=== PATIENT | female | born 1970 | race Caucasian/White ===

== ENCOUNTER 2017-01-22 21:57 | Emergency (ER) | payer MEDICARE, MEDICAID ==
[~2017-01-22] VITALS: Ht 167.6 cm; Wt 181.8 kg
[~2017-01-22 21:57] MED LIST: ADVI200C5 PO; ALBU17IN INH; CELE10TA PO; CELE20TA PO; CIPR-249 PO; CYCL10TA PO; DRIS50002 PO; GABA-282 PO; K-TA10TA2 PO; LEVO100T5 PO; LEVO25TA5 PO; LEVO50TA5 PO; METF500T13 PO; PERCOCET PO; TOPA50TA8 PO; TRAZ50TA11 PO; VITMTA PO; ZANA2CAP PO
[2017-01-22 21:58] VITALS: BP 152/86
[2017-01-23] MEDS ORDERED: PERC5TAB12 PO (23:59)
== END 2017-01-22 23:27 | disposition left against medical advice (07) ==
LOC: M ED 21:57
DX: R11.0 Nausea (principal); Z53.29 Procedure and treatment not carried out because of patient's decision for other reasons

== ENCOUNTER 2017-01-23 21:16 | Emergency (ER) | payer MEDICARE, MEDICAID ==
[~2017-01-23] VITALS: Ht 170.2 cm; Wt 184.1 kg
[2017-01-23 21:51] VITALS: BP 135/75
[2017-01-23] MEDS ORDERED: KETOROLAC 60 MG/2 ML VIAL (J1885) IM ONE (22:00)
[2017-01-23] MEDS ORDERED: PERC5TAB12 PO (23:59)
[2017-01-24] MEDS ORDERED: OXYCODONE/APAP 5MG/325MG(BULK FOR ED) 1 TABLET PO ONE
== END 2017-01-24 00:32 | disposition home or self-care (01) ==
LOC: EDBD 21:16 → M ED 21:16
DX: M54.16 Radiculopathy, lumbar region (principal); M54.17 Radiculopathy, lumbosacral region; E11.9 Type 2 diabetes mellitus without complications; G89.29 Other chronic pain; M54.9 Dorsalgia, unspecified; J45.909 Unspecified asthma, uncomplicated; E06.9 Thyroiditis, unspecified; F32.9 Major depressive disorder, single episode, unspecified; F17.200 Nicotine dependence, unspecified, uncomplicated; E66.01 Morbid (severe) obesity due to excess calories; M51.9 Unspecified thoracic, thoracolumbar and lumbosacral intervertebral disc disorder; Z79.899 Other long term (current) drug therapy; Z88.1 Allergy status to other antibiotic agents; Z88.8 Allergy status to other drugs, medicaments and biological substances
CPT/HCPCS: 96372; 99283; J1885; J3360

== ENCOUNTER 2017-03-11 17:14 | Emergency (ER) | payer MEDICARE, MEDICAID ==
[~2017-03-11] VITALS: Ht 167.6 cm; Wt 181.8 kg
[~2017-03-11 17:14] MED LIST changes: +PERC5TAB12 PO
[2017-03-11] MEDS ORDERED: PERCOCET 5MG/325MG TAB PO ONE (17:30)
[2017-03-11] MEDS ORDERED: [UNRECOGNIZED DRUG - OTHER] XX (18:45)
[2017-03-11 19:03] VITALS: BP 137/74
--- NOTE | 2017-03-12 07:18 | REP ---
RIGHT KNEE SERIES: Five views of the right knee are performed. There is no evidence of acute fracture or dislocation. There is moderate diffuse joint space narrowing and subchondral sclerosis and spurring. Probable joint effusion is noted. IMPRESSION: Degenerative changes. No fracture. Joint effusion. Signed by Torin Cornejo MD 03/12/2017 05:27 P
== END 2017-03-11 19:26 | disposition home or self-care (01) ==
LOC: M ED 17:14 → EDBD 17:14 → M ED 19:26
DX: M25.561 Pain in right knee (principal); J44.9 Chronic obstructive pulmonary disease, unspecified; M79.9 Soft tissue disorder, unspecified; F32.9 Major depressive disorder, single episode, unspecified; F17.200 Nicotine dependence, unspecified, uncomplicated; Z79.899 Other long term (current) drug therapy; Z88.1 Allergy status to other antibiotic agents; Z88.8 Allergy status to other drugs, medicaments and biological substances

== ENCOUNTER → 2017-10-03 | Outpatient (REF) | payer MEDICARE, MEDICAID ==
[2017-10-03 20:08] LABS: ESTIMATED AVERAGE GLUCOSE 266 MG/DL (60-110); HEMOGLOBIN A1c 10.9 %
[2017-10-03 20:14] LABS: ALBUMIN 3.5 GM/DL (3.2-5.2); ALBUMIN/GLOBULIN RATIO 0.92 (1.00-1.93); ALKALINE PHOSPHATASE 160 U/L (45-117); ALT/SGPT 97 U/L (12-78); ANION GAP 4 MEQ/L (8-16); AST/SGOT 47 U/L (7-37); BILIRUBIN,TOTAL 0.3 MG/DL (0.2-1.0); BLOOD UREA NITROGEN 14 MG/DL (7-18); CALCIUM LEVEL 9.2 MG/DL (8.5-10.1); CARBON DIOXIDE LEVEL 33 MEQ/L (21-32); CHLORIDE LEVEL 103 MEQ/L (98-107); CREATININE FOR GFR 0.99 MG/DL (0.55-1.30); GLOMERULAR FILTRATION RATE > 60.0 (>58); GLUCOSE, FASTING 263 MG/DL (70-100); POTASSIUM SERUM 4.9 MEQ/L (3.5-5.1); SODIUM LEVEL 140 MEQ/L (136-145); TOTAL PROTEIN 7.3 GM/DL (6.4-8.2)
== END ==
LOC: M LAB REF 17:31
DX: E03.9 Hypothyroidism, unspecified (principal); E11.9 Type 2 diabetes mellitus without complications
CPT/HCPCS: 84443

== ENCOUNTER 2017-10-08 22:19 | Emergency (ER) | payer MEDICARE, MEDICAID ==
[2017-10-08] MEDS: methylPREDNISolone INJ 125 MG/2 ML VIAL (J2930) IM ×2 (23:09)
[2017-10-08] MEDS: diphenhydrAMINE INJ 50MG/ML VIAL (J1200) IM ×2 (23:09)
== END 2017-10-09 00:20 | disposition home or self-care (01) ==
LOC: M ED 10-09 00:20
DX: R21 Rash and other nonspecific skin eruption (principal); E66.01 Morbid (severe) obesity due to excess calories; E11.9 Type 2 diabetes mellitus without complications; J45.909 Unspecified asthma, uncomplicated; E03.9 Hypothyroidism, unspecified; F33.9 Major depressive disorder, recurrent, unspecified; F41.9 Anxiety disorder, unspecified; F17.200 Nicotine dependence, unspecified, uncomplicated; Z88.8 Allergy status to other drugs, medicaments and biological substances; Z79.890 Hormone replacement therapy; Z79.899 Other long term (current) drug therapy
CPT/HCPCS: J1200

== ENCOUNTER → 2017-11-19 | Outpatient (REF) | payer MEDICARE, MEDICAID ==
[2017-11-19 19:33] LABS: ESTIMATED AVERAGE GLUCOSE 252 MG/DL (60-110); HEMOGLOBIN A1c 10.4 %
== END ==
LOC: M LAB REF 17:48
DX: E03.9 Hypothyroidism, unspecified (principal); Z79.899 Other long term (current) drug therapy
CPT/HCPCS: 84443

== ENCOUNTER → 2018-01-08 | Outpatient (REF) | payer MEDICARE, MEDICAID | LOC: M LAB REF 18:48 | DX: E03.9 Hypothyroidism, unspecified (principal) | CPT/HCPCS: 84443 ==

== ENCOUNTER → 2018-04-16 | Outpatient (REF) | payer MEDICARE ==
[2018-04-16 14:27] LABS: BASO % 0.5 % (0.0-1.0); EOS # 0.1 10^3/uL (0.0-0.50); EOS % 2.4 % (0.0-3.0); HEMATOCRIT 50.2 % (36.0-47.0); IMMATURE GRANULOCYTE % 0.5 % (0-3.0); LYMPH # 0.9 10^3/uL (1.5-4.5); LYMPH % 16.1 % (24.0-44.0); MEAN CORPUSCULAR HEMOGLOBIN 34.8 pg (27.0-33.0); MEAN CORPUSCULAR HGB CONC 31.9 g/dl (32.0-36.5); MEAN CORPUSCULAR VOLUME 109.1 fl (80.0-96.0); MONO # 0.3 10^3/uL (0.0-0.8); MONO % 4.7 % (0.0-5.0); NEUTROPHILS # 4.4 10^3/uL (1.8-7.7); NEUTROPHILS % 75.8 % (36.0-66.0); PLATELET COUNT, AUTOMATED 238 10^3/uL (150-450); WHITE BLOOD COUNT 5.8 10^3/uL (4.0-10.0)
[2018-04-16 14:59] LABS: ALBUMIN 3.4 GM/DL (3.2-5.2); ALBUMIN/GLOBULIN RATIO 0.97 (1.00-1.93); ALKALINE PHOSPHATASE 154 U/L (45-117); ALT/SGPT 102 U/L (12-78); ANION GAP 6 MEQ/L (8-16); AST/SGOT 61 U/L (7-37); BILIRUBIN,TOTAL 0.3 MG/DL (0.2-1.0); BLOOD UREA NITROGEN 16 MG/DL (7-18); CALCIUM LEVEL 9.1 MG/DL (8.5-10.1); CARBON DIOXIDE LEVEL 30 MEQ/L (21-32); CHLORIDE LEVEL 104 MEQ/L (98-107); CREATININE FOR GFR 0.97 MG/DL (0.55-1.30); GLOMERULAR FILTRATION RATE > 60.0 (>58); GLUCOSE, FASTING 163 MG/DL (70-100); POTASSIUM SERUM 4.8 MEQ/L (3.5-5.1); RHEUMATOID FACTOR QUANT < 10.0 IU/ML (<15.0); SODIUM LEVEL 140 MEQ/L (136-145); TOTAL PROTEIN 6.9 GM/DL (6.4-8.2)
[2018-04-16 15:00] LABS: FOLATE 11.1 NG/ML
[2018-04-16 15:10] LABS: ERYTHROCYTE SEDIMENTATION RATE 3 mm/hr (0-20)
[2018-04-16 15:19] LABS: ESTIMATED AVERAGE GLUCOSE 154 MG/DL (60-110)
[2018-04-17 11:11] LABS: DRVV SCREEN 35.1 SEC
[2018-04-17 11:17] LABS: PTT LUPUS TYPE ANTICOAG SCREEN 0.8 (0-1.2)
[2018-04-18 11:04] LABS: ALBUMIN 3.67 GM/DL (3.29-5.55); ALBUMIN % 53.2 % (55.8-66.1); ALPHA-1-GLOBULIN % 4.5 % (2.9-4.9); ALPHA-1-GLOBULINS 0.31 GM/DL (0.17-0.41); ALPHA-2-GLOBULINS 0.82 GM/DL (0.42-0.99); ALPHA-2-GLOBULINS % 11.9 % (7.1-11.8); BETA-1-GLOBULINS % 7.3 % (4.7-7.2); BETA-2-GLOBULINS % 7.2 % (3.2-6.5); GAMMA GLOBULIN % 15.9 % (11.1-18.8)
[2018-04-22 00:07] LABS: ANCA-ATYPICAL <1:20 titer (Neg:<1:20); ANTI DOUBLE STRAND-DNA AB 1 IU/mL (0-9); ANTINUCLEAR ANTIBODIES DIRECT Negative (Negative); CYTOPLASMIC NEUTROP AB ANCA-C <1:20 titer (Neg:<1:20); PERINUCLEAR AB ANCA-P <1:20 titer (Neg:<1:20); SJOGREN'S ANTI SS-A <0.2 AI (0.0-0.9); SJOGREN'S ANTI SS-B <0.2 AI (0.0-0.9); VITAMIN B1 LEVEL WHOLE BLOOD 129.5 nmol/L (66.5-200.0); VITAMIN B6,PYRIDOXAL PHOSPHATE 2.1 ug/L (2.0-32.8); VITAMIN E(ALPHA TOCOPHEROL) 10.5 mg/L (7.0-25.1); VITAMIN E(GAMMA TOCOPHEROL) 5.3 mg/L (0.5-5.5)
== END ==
LOC: M LABNEURO 10:42
DX: G62.9 Polyneuropathy, unspecified (principal); E03.9 Hypothyroidism, unspecified; E11.9 Type 2 diabetes mellitus without complications
CPT/HCPCS: 82746

== ENCOUNTER 2018-04-20 00:05 | Emergency (ER) | payer MEDICARE ==
[2018-04-20] MEDS: NORCO, ANEXSIA 5/325MG TABLET (HYDROcodone/ACETAMINOPHEN) PO (01:01)
[2018-04-20] MEDS: NORCO 5/325MG TABLET (BULK FOR ED) PO (02:23)
== END 2018-04-20 02:33 | disposition home or self-care (01) ==
LOC: M ED 00:05
DX: K08.89 Other specified disorders of teeth and supporting structures (principal); E11.9 Type 2 diabetes mellitus without complications; J44.9 Chronic obstructive pulmonary disease, unspecified; J45.909 Unspecified asthma, uncomplicated; M79.7 Fibromyalgia; F43.10 Post-traumatic stress disorder, unspecified; E03.9 Hypothyroidism, unspecified; D64.9 Anemia, unspecified; Z79.899 Other long term (current) drug therapy; Z79.890 Hormone replacement therapy; Z79.4 Long term (current) use of insulin; Z88.8 Allergy status to other drugs, medicaments and biological substances; F17.210 Nicotine dependence, cigarettes, uncomplicated
CPT/HCPCS: 70486

== ENCOUNTER → 2018-05-24 | Outpatient (CLI) | payer MEDICARE | LOC: M PLARAD 10:10 | DX: M47.892 Other spondylosis, cervical region (principal); M48.02 Spinal stenosis, cervical region; M50.21 Other cervical disc displacement, high cervical region; M50.221 Other cervical disc displacement at C4-C5 level; M50.23 Other cervical disc displacement, cervicothoracic region | CPT/HCPCS: 72141 ==

== ENCOUNTER 2018-06-15 04:14 | Emergency (ER) | payer MEDICARE ==
[~2018-06-15] VITALS: Ht 170.2 cm; Wt 190.9 kg
[~2018-06-15 04:14] MED LIST changes: +AMMO12CR4; -DRIS50002 PO; +DRIS50003 PO; -GABA-282 PO; +GABA-843 PO; +GLIM2TAB PO; +GLIP5TAB20; +INSUH10VL SC; +LANTINJ4; +LEVO112T2; +LIDVISCBTL SSP; +NORCOTAB PO; +NOVOINJ2; +TRAD5TAB; +TRAZ-160 PO; -TRAZ50TA11 PO; +TRUL0.5I; +[UNRECOGNIZED DRUG - OTHER] XX
[2018-06-15] MEDS ORDERED: KETOROLAC 30 MG/ML VIAL (J1885) IV ONE (05:00)
[2018-06-15] MEDS ORDERED: ONDANSETRON 4MG/2ML VIAL (J2405) IV ONE (05:00)
[2018-06-15] MEDS ORDERED: NS 1,000 ML IV ONE (05:00)
[2018-06-15 05:22] LABS: BASO % 0.4 % (0.0-1.0); EOS # 0.1 10^3/uL (0.0-0.50); EOS % 2.1 % (0.0-3.0); HEMATOCRIT 49.1 % (36.0-47.0); HEMOGLOBIN 16.3 g/dl (12.0-15.5); LYMPH # 1.3 10^3/uL (1.5-4.5); MEAN CORPUSCULAR HEMOGLOBIN 34.3 pg (27.0-33.0); MEAN CORPUSCULAR HGB CONC 33.2 g/dl (32.0-36.5); MEAN CORPUSCULAR VOLUME 103.4 fl (80.0-96.0); MONO # 0.3 10^3/uL (0.0-0.8); MONO % 4.6 % (0.0-5.0); NEUTROPHILS # 4.9 10^3/uL (1.8-7.7); NEUTROPHILS % 73.5 % (36.0-66.0); PLATELET COUNT, AUTOMATED 230 10^3/uL (150-450); RED BLOOD COUNT 4.75 10^6/uL (4.00-5.40); WHITE BLOOD COUNT 6.7 10^3/uL (4.0-10.0)
[2018-06-15 05:39] LABS: ALBUMIN 3.2 GM/DL (3.2-5.2); ALT/SGPT 95 U/L (12-78); BILIRUBIN,DIRECT < 0.1 MG/DL (0.0-0.2); BILIRUBIN,TOTAL 0.3 MG/DL (0.2-1.0); BLOOD UREA NITROGEN 19 MG/DL (7-18); CALCIUM LEVEL 8.9 MG/DL (8.5-10.1); CARBON DIOXIDE LEVEL 29 MEQ/L (21-32); CHLORIDE LEVEL 101 MEQ/L (98-107); CREATININE FOR GFR 1.18 MG/DL (0.55-1.30); GLOMERULAR FILTRATION RATE 51.8 (>58); GLUCOSE, FASTING 216 MG/DL (70-100); LIPASE 191 U/L (73-393); POTASSIUM SERUM 4.2 MEQ/L (3.5-5.1); SODIUM LEVEL 138 MEQ/L (136-145)
--- NOTE | 2018-06-15 08:29 | REPVR ---
EXAM: CT Abdomen and Pelvis Without Contrast EXAM DATE/TIME: 06/15/2018 5:43 AM CLINICAL HISTORY: 48 years old, female; Pain; Abdominal pain; Flank; Right; Additional info: Right flank pain, hematuria TECHNIQUE: Axial computed tomography images of the abdomen and pelvis without contrast. All CT scans at this facility use at least one of these dose optimization techniques: automated exposure control; mA and/or kV adjustment per patient size (includes targeted exams where dose is matched to clinical indication); or iterative reconstruction. Coronal and sagittal reformatted images were created and reviewed. COMPARISON: CT ABD PELVIS WITH CONTRAST 07/30/2015 5:26 AM FINDINGS: Limitations: Evaluation is somewhat limited by lack of IV contrast. There is also streak artifact along the right aspect related to body habitus with the body wall along the scanner. Lower thorax: The visualized lung bases demonstrate minor dependent atelectasis. ABDOMEN: Liver: The liver is again enlarged and fatty in density. It appears otherwise grossly unremarkable. Gallbladder and bile ducts: No gallstones are evident, but ultrasound would be more sensitive. No gross biliary ductal dilatation. Pancreas: Grossly unremarkable. Spleen: Grossly unremarkable. Adrenals: Grossly unremarkable. Kidneys and ureters: Grossly unremarkable. No hydronephrosis or renal or ureteral calculus. Stomach and bowel: The unopacified small bowel is not significantly distended to suggest obstruction. There is again mild sigmoid colonic diverticulosis without evidence for diverticulitis. The large bowel is otherwise grossly unremarkable in appearance. Appendix: The appendix appears normal. PELVIS: Bladder: Unremarkable as visualized. Reproductive: Unremarkable as visualized. ABDOMEN and PELVIS: Intraperitoneal space: Normal. No free air. No significant fluid collection. Bones/joints: Degenerative changes again involve the spine and hips. There are again remote fractures or congenital defects of the right L1-L4 transverse processes. Soft tissues: Unremarkable. Vasculature: Normal. No abdominal aortic aneurysm. Lymph nodes: There are some mildly increasing and large maura hepatis lymph nodes measuring up to 1.8 cm short axis (previously 1.3 cm). IMPRESSION: 1. No hydronephrosis or renal or ureteral calculus. 2. Mildly enlarging maura hepatis lymphadenopathy as compared with 07/30/15, nonspecific. Correlate clinically and follow. 3. Persistent large, fatty liver. 4. Persistent mild sigmoid colonic diverticulosis without evidence for diverticulitis. 5. Depending on suspected etiology of symptoms, consider a targeted ultrasound or contrast enhanced exam. Electronically signed by: Emmanuel Talavera On 06/15/2018 08:28:32 AM
--- NOTE | 2018-06-15 10:19 | REP ---
Clinical: Abdominal pain. Technique: Real time sigala scale ultrasound examination using curved array transducer. Findings: Liver is diffusely increased echogenicity with poor through transmission suggesting fatty infiltration. No focal hepatic lesion identified. The pancreas is incompletely evaluated due to interposed bowel gas but visualized portions appear normal. The gallbladder is unremarkable and without gallstones, wall thickening, or pericholecystic fluid. No biliary ductal dilatation is appreciated and the common bile duct measures 3.4 mm diameter. The right kidney is normal in reniform shape without hydronephrosis and measures 12.6 x 5.8 x 5.4 cm. No ascites in the visualized right upper quadrant. Impression: Hepatic steatosis. Electronically Signed by Wero Kathleen MD 06/15/2018 10:11 A
[2018-06-15] MEDS ORDERED: LIDO5DIS41 TOP (10:29)
[2018-06-15] MEDS ORDERED: CYCL5TAB PO (10:29)
[2018-06-15 10:43] VITALS: BP 115/55
[2018-06-17 12:28] LABS: HEPATITIS A ANTIBODY IGM NEGATIVE (NEGATIVE); HEPATITIS B CORE ANTIBODY IGM NEGATIVE (NEGATIVE); HEPATITIS B SURFACE ANTIGEN NEGATIVE (NEGATIVE); HEPATITIS C VIRUS ABY INDEX 0.1 INDEX (<0.8)
== END 2018-06-15 10:52 | disposition home or self-care (01) ==
LOC: M ED 04:14
DX: M54.9 Dorsalgia, unspecified (principal); R10.9 Unspecified abdominal pain; K76.89 Other specified diseases of liver; K57.90 Diverticulosis of intestine, part unspecified, without perforation or abscess without bleeding; I25.10 Atherosclerotic heart disease of native coronary artery without angina pectoris; E11.9 Type 2 diabetes mellitus without complications; G89.29 Other chronic pain; M54.5 Low back pain; Z72.0 Tobacco use; Z12.10 Encounter for screening for malignant neoplasm of intestinal tract, unspecified; Z79.4 Long term (current) use of insulin; Z79.899 Other long term (current) drug therapy; Z88.1 Allergy status to other antibiotic agents; Z88.8 Allergy status to other drugs, medicaments and biological substances
CPT/HCPCS: 74176; 76705; 80048; 80076; 81001; 83690; 85025; 86705; 86709; 86803; 87340; 96361; 96374; 96375; 99284; J1885; J2405

== ENCOUNTER → 2018-09-10 | Outpatient (REF) | payer MEDICARE ==
[~2018-09-10] MED LIST changes: +CYCL5TAB PO; +LIDO5DIS41 TOP
[2018-09-10 18:10] LABS: BASO % 0.5 % (0.0-1.0); EOS # 0.2 10^3/uL (0.0-0.50); EOS % 2.3 % (0.0-3.0); HEMATOCRIT 47.5 % (36.0-47.0); HEMOGLOBIN 15.5 g/dl (12.0-15.5); LYMPH # 1.3 10^3/uL (1.5-4.5); LYMPH % 16.6 % (24.0-44.0); MEAN CORPUSCULAR HEMOGLOBIN 33.5 pg (27.0-33.0); MEAN CORPUSCULAR HGB CONC 32.6 g/dl (32.0-36.5); MEAN CORPUSCULAR VOLUME 102.8 fl (80.0-96.0); MONO # 0.3 10^3/uL (0.0-0.8); MONO % 3.6 % (0.0-5.0); NEUTROPHILS # 5.8 10^3/uL (1.8-7.7); NEUTROPHILS % 76.5 % (36.0-66.0); PLATELET COUNT, AUTOMATED 275 10^3/uL (150-450); RED BLOOD COUNT 4.62 10^6/uL (4.00-5.40); WHITE BLOOD COUNT 7.5 10^3/uL (4.0-10.0)
[2018-09-10 18:47] LABS: ALBUMIN 3.3 GM/DL (3.2-5.2); ALT/SGPT 115 U/L (12-78); BILIRUBIN,TOTAL 0.4 MG/DL (0.2-1.0); BLOOD UREA NITROGEN 13 MG/DL (7-18); CALCIUM LEVEL 9.1 MG/DL (8.5-10.1); CARBON DIOXIDE LEVEL 29 MEQ/L (21-32); CHLORIDE LEVEL 99 MEQ/L (98-107); CHOLESTEROL LEVEL 244 MG/DL (<200); CHOLESTEROL RISK RATIO 8.714 (<5); CREATININE FOR GFR 0.86 MG/DL (0.55-1.30); FERRITIN 288 NG/ML (8-252); FOLATE 6.1 NG/ML; GLOMERULAR FILTRATION RATE > 60.0 (>58); GLUCOSE, FASTING 234 MG/DL (70-100); HDL CHOLESTEROL 28 MG/DL (>40); IRON (FE) 133 UG/DL (50-170); NON-HDL-C 216 MG/DL; POTASSIUM SERUM 4.6 MEQ/L (3.5-5.1); SODIUM LEVEL 135 MEQ/L (136-145); TOTAL 25(OH) VITAMIN D 17.3 NG/ML (30.0-100.0); TRIGLYCERIDES LEVEL 433 MG/DL (<150); VITAMIN B12 LEVEL 469 PG/ML
== END ==
LOC: M LAB REF 16:42
PROVIDERS: ATTEND Nurse Practitioner Family
DX: Z13.9 Encounter for screening, unspecified (principal); E78.5 Hyperlipidemia, unspecified; E11.9 Type 2 diabetes mellitus without complications

== ENCOUNTER → 2018-09-13 | Outpatient (CLI) | payer MEDICARE, MEDICAID ==
[~2018-09-13] MED LIST changes: -AMMO12CR4; +AMMO12CR7; +HYDR-3715 PO; +KEFL500C17 PO; +NEUR300C PO; -NORCOTAB PO
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
== END ==
LOC: M PAIN 09:30
PROVIDERS: ATTEND Anesthesiology
DX: M79.18 Myalgia, other site (principal); M50.10 Cervical disc disorder with radiculopathy, unspecified cervical region; J45.909 Unspecified asthma, uncomplicated; J44.9 Chronic obstructive pulmonary disease, unspecified; E03.9 Hypothyroidism, unspecified; E11.9 Type 2 diabetes mellitus without complications; D64.9 Anemia, unspecified; E66.9 Obesity, unspecified; F43.10 Post-traumatic stress disorder, unspecified; F32.9 Major depressive disorder, single episode, unspecified; F17.200 Nicotine dependence, unspecified, uncomplicated; H54.8 Legal blindness, as defined in USA; M19.90 Unspecified osteoarthritis, unspecified site; F40.01 Agoraphobia with panic disorder; F40.240 Claustrophobia; Z68.44 Body mass index [BMI] 60.0-69.9, adult; Z79.84 Long term (current) use of oral hypoglycemic drugs; Z79.899 Other long term (current) drug therapy; Z88.8 Allergy status to other drugs, medicaments and biological substances

== ENCOUNTER 2018-09-24 21:44 | Emergency (ER) | payer MEDICARE, MEDICAID ==
[~2018-09-24] VITALS: Ht 170.2 cm; Wt 188.2 kg
[~2018-09-24 21:44] MED LIST changes: -KEFL500C17 PO; -NEUR300C PO
[2018-09-24] MEDS ORDERED: NEUR300C PO (21:49)
[2018-09-25 01:47] LABS: BASO % 0.5 % (0.0-1.0); EOS # 0.1 10^3/uL (0.0-0.50); EOS % 2.2 % (0.0-3.0); HEMATOCRIT 44.5 % (36.0-47.0); HEMOGLOBIN 14.6 g/dl (12.0-15.5); LYMPH # 1.1 10^3/uL (1.5-4.5); LYMPH % 19.3 % (24.0-44.0); MEAN CORPUSCULAR HGB CONC 32.8 g/dl (32.0-36.5); MEAN CORPUSCULAR VOLUME 103.5 fl (80.0-96.0); MONO # 0.3 10^3/uL (0.0-0.8); MONO % 4.5 % (0.0-5.0); NEUTROPHILS # 4.1 10^3/uL (1.8-7.7); NEUTROPHILS % 73.1 % (36.0-66.0); PLATELET COUNT, AUTOMATED 200 10^3/uL (150-450); WHITE BLOOD COUNT 5.6 10^3/uL (4.0-10.0)
[2018-09-25 02:00] LABS: PROTHROMBIN TIME 13.3 SECONDS (12.1-14.4)
[2018-09-25 02:01] LABS: PARTIAL THROMBOPLASTIN TIME 25.4 SECONDS (25.4-37.6)
[2018-09-25 02:28] LABS: ALBUMIN 3.2 GM/DL (3.2-5.2); ALT/SGPT 143 U/L (12-78); BILIRUBIN,DIRECT 0.1 MG/DL (0.0-0.2); BILIRUBIN,TOTAL 0.4 MG/DL (0.2-1.0); BLOOD UREA NITROGEN 14 MG/DL (7-18); CALCIUM LEVEL 8.8 MG/DL (8.5-10.1); CARBON DIOXIDE LEVEL 25 MEQ/L (21-32); CHLORIDE LEVEL 103 MEQ/L (98-107); FREE T4 1.02 NG/DL (0.76-1.46); GLOMERULAR FILTRATION RATE > 60.0 (>58); GLUCOSE, FASTING 219 MG/DL (70-100); MAGNESIUM LEVEL 1.9 MG/DL (1.8-2.4); PHOSPHORUS LEVEL 3.4 MG/DL (2.5-4.9); POTASSIUM SERUM 4.4 MEQ/L (3.5-5.1); SODIUM LEVEL 136 MEQ/L (136-145)
[2018-09-25 02:46] LABS: CPK CREATINE PHOSPHOKINASE 93 U/L (26-192); TROPONIN I < 0.02 NG/ML (< 0.10)
[2018-09-25 02:47] LABS: MB/CK RELATIVE INDEX 1.61 (< OR =4)
--- NOTE | 2018-09-25 03:27 | REPVR ---
EXAM: US Duplex Bilateral Lower Extremity Veins EXAM DATE/TIME: 09/25/2018 2:09 AM CLINICAL HISTORY: 48 years old, female; Signs and symptoms; Edema, localized; Lower extremity, bilateral; Additional info: Swelling R/O dvt TECHNIQUE: Imaging protocol: Real-time duplex ultrasound of the Bilateral Lower Extremities with 2-D sigala scale, color Doppler flow and spectral waveform analysis. Complete exam focused on the bilateral lower extremity veins. COMPARISON: US Duplex, right lower extremity veins 11/30/2014 9:12 PM FINDINGS: Right deep veins: Unremarkable. The common femoral, femoral, and popliteal veins are patent without thrombus. Normal compressibility, augmentation response and Doppler waveforms. Right superficial veins: Saphenofemoral junction is patent without thrombus. Left deep veins: Unremarkable. The common femoral, femoral, and popliteal veins are patent without thrombus. Normal compressibility, augmentation response and Doppler waveforms. Left superficial veins: Saphenofemoral junction is patent without thrombus. Soft tissues: Unremarkable. IMPRESSION: No deep vein thrombosis in the veins visualized in both lower extremities. Electronically signed by: Silviano Matta On 09/25/2018 03:27:46 AM
[2018-09-25 04:14] VITALS: BP 110/82
[2018-09-25] MEDS ORDERED: KEFL500C17 PO (04:36)
[2018-09-25] MEDS ORDERED: CEPHALEXIN 500 MG CAP PO ONE (04:45)
--- NOTE | 2018-09-25 05:40 | REP ---
Clinical: Shortness of breath. Technique: AP and cross-table lateral. Findings: Mediastinum and cardiac silhouette are normal. Subtle right basilar opacity cannot be excluded. No effusion. No pneumothorax. Skeletal structures intact. Impression: Cannot exclude subtle right basilar opacity. Electronically Signed by Wero Kathleen MD 09/25/2018 05:32 A
--- NOTE | 2018-09-25 06:44 | ED PDOC ---
Post-Departure Follow-Up [facility] faxed cxr for fu nikolayg Rosalia Stevens MD Sep 25, 2018 06:44
--- NOTE | 2018-09-25 08:33 | ECGEPIP ---
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
== END 2018-09-25 04:53 | disposition home or self-care (01) ==
LOC: M ED 21:44
DX: L03.115 Cellulitis of right lower limb (principal); L03.116 Cellulitis of left lower limb; E11.9 Type 2 diabetes mellitus without complications; I10 Essential (primary) hypertension; J45.909 Unspecified asthma, uncomplicated; J44.9 Chronic obstructive pulmonary disease, unspecified; M79.7 Fibromyalgia; D64.9 Anemia, unspecified; F43.10 Post-traumatic stress disorder, unspecified; Z79.4 Long term (current) use of insulin; Z79.899 Other long term (current) drug therapy; Z88.4 Allergy status to anesthetic agent; Z88.1 Allergy status to other antibiotic agents; Z88.8 Allergy status to other drugs, medicaments and biological substances

== ENCOUNTER → 2018-10-15 | Outpatient (CLI) | payer MEDICARE, MEDICAID ==
[~2018-10-15] MED LIST changes: +BUPIVACAINE HCL 0.25% 10 ML VIAL As Ordered ONE; +BUPIVACAINE HCL 0.25% 30 ML VIAL As Ordered ONE; +KEFL500C17 PO; +NEUR300C PO; +TRIAMCINOLONE ACETONIDE SUSP 40 MG/ML VIAL (J3301) As Ordered ONE; +diazePAM 5 MG TAB As Ordered ONE; +oxyCODONE 5MG TAB As Ordered ONE
--- NOTE | 2018-10-28 00:20 | ECWPNPC ---
PATIENT NAME: RUKHSANA JUÁREZ : 1970 GENDER: FEMALE VISIT DATE: 10/15/2018 DISCHARGE DATE: 10/15/18 1339 VISIT LOCKED DATE TIME: PHYSICIAN: NAYLA MORRELL MD RESOURCE: NAYLA MORRELL MD REASON FOR APPOINTMENT 1. TPI HISTORY OF PRESENT ILLNESS HISTORY OF PRESENT ILLNESS: PAIN THE PATIENT DESCRIBES THE PAIN... FALL RISK SCREENING: SCREENING :NO FALLS REPORTED IN THE LAST YEAR CURRENT MEDICATIONS TAKING GLIPIZIDE 5 MG TABLET 1 TABLET ORALLY ONCE A DAY, NOTES: 10/14/18 TAKING LEVOTHYROXINE SODIUM 112 MCG TABLET 1 TABLET ON AN EMPTY STOMACH IN THE MORNING ORALLY ONCE A DAY, NOTES: 10/15/18 TAKING CYCLOBENZAPRINE HCL 10 MG TABLET 1 TABLET NEEDED ORALLY THREE TIMES A DAY, NOTES: 10/13/18 TAKING GABAPENTIN 300 MG CAPSULE 1 CAPSULE ORALLY BID, NOTES: 10/13/18 TAKING IBUPROFEN 200 MG TABLET 4 TABS ORALLY FOUR TIMES DAILY NEEDED, NOTES: 10/14/18 TAKING TRAZODONE HCL 100 MG TABLET 1 TABLET AT BEDTIME ORALLY ONCE A DAY, NOTES: 10/14/18 TAKING NYQUIL COLD & FLU 8 MG 1 CAP FULL ORALLY BEFORE BEDTIME, NOTES: 10/14/18 TAKING LIDOCAINE & ADHESIVE SHEET 5 % KIT DIRECTED EXTERNALLY , NOTES: 10/14/18 NOT-TAKING TRADJENTA 5 MG TABLET 1 TABLET ORALLY ONCE A DAY NOT-TAKING TRULICITY 1.5 MG/0.5ML SOLUTION PEN-INJECTOR DIRECTED SUBCUTANEOUS MEDICATION LIST REVIEWED AND RECONCILED WITH THE PATIENT PAST MEDICAL HISTORY ASTHMA COPD HYPOTHYROIDISM DIABETES IDDM ANEMIA OBESEITY BACK PAIN ARTHRITIS PTSD DEPRESSION ANXIETY / PANIC ATTACKS, AGORAPHOBIA, CLAUSTORPHOBIA LEGALLY BLIND ALLERGIES LYRICA: SEIZURES - ALLERGY WELLBUTRIN: SEIZURE - ALLERGY GLIMEPIRIDE: FACE SWELLING - ALLERGY SURGICAL HISTORY LEFT EYE RIGHT KNEE D&C 01/16 10/22/02 FAMILY HISTORY FATHER: 63 YRS, DIAGNOSED WITH DIABETES, CANCER MOTHER: 60 YRS, CANCER 1 BROTHER(S) , 3 SISTER(S) . 1 SON(S) , 2 DAUGHTER(S) . BROTHER - 2 [place] IN 2018, PTSD,ANXIETY\NOLDEST SISTER HAS CANCER\NMIDDLE SISTER -HYPERTHYROIDISM, GRAVES DIEASE\NYOUNGEST SISTER DM, BONE DIEASE\NBOTH DAUGHTERS HAVE CHRONIC MESOSYTERIC LYMPGHADNITUS\NYOUNGEST DAUGHTER HAS A FATTY LIVER\EDWIN THREE CHILDREN HAVE ANXIETY. SOCIAL HISTORY GENERAL: TOBACCO USE ARE YOU A:CURRENT SMOKER ARE YOU INTERESTED IN QUITTING?THINKING ABOUT QUITTING PREVIOUS QUIT ATTEMPTS?YES, MORE THAN 6 MONTHS AGO. COUNSELED THE PATIENT ON SMOKING CESSATION, EDUCATION [id number]/30/2019 OTHERS AT HOME: NONE. HOUSING: RENTS APARTMENT. EDUCATION LEVEL OF EDUCATION:NOT FINISHED COLLEGE DIET: NO CONCENTRATED SWEETS., CONSISTENT CARBOHYDRATE. LANGUAGE LANGUAGES SPOKEN:HEBREW RECREATIONAL DRUG USE DRUG USE?YES MARIJUANA, BROWNIES EXERCISE: NONE. LEARNING BARRIERS / SPECIAL NEEDS BARRIERS TO LEARNING?NO HEARING IMPAIRED?NO VISION IMPAIRED?YES :CORRECTIVE LENSES COGNITIVELY IMPAIRED?NO READINESS TO LEARN?NO LEARNING PREFERENCES?NO PAIN CLINIC PFS, CLERGY, PUBLIC HEALTH REFERRALS PFS REFERRAL NEEDED?NO CLERGY REFERRAL NEEDED?NO PUBLIC HEALTH REFERRAL NEEDED?NO WAS THE PROVIDER NOTIFIED OF ANY PERTINENT INFO?NO HAS THE PATIENT BEEN EDUCATED REGARDING HIS/HER PLAN OF CARE?YES HAS THE PATIENT BEEN EDUCATED REGARDING PAIN, THE RISK FOR PAIN, THE IMPORTANCE OF EFFECTIVE PAIN MANAGEMENT, AND THE PAIN ASSESSMENT PROCESS?YES LATEX QUESTIONNAIRE LATEX ALLERGY : HAVE YOU EVER DEVELOPED ANY TYPE OF REACTION AFTER HANDLING LATEX PRODUCTS SUCH RUBBER GLOVES, CONDOMS, DIAPHRAGMS, BALLOONS, SOCKS, OR UNDERWEAR?NO LATEX ALLERGY : HAVE YOU EVER DEVELOPED ANY TYPE OF REACTION DURING OR AFTER DENTAL APPOINTMENT, VAGINAL/RECTAL EXAMINATION, SURGICAL PROCEDURE, OR ANY OTHER EXPOSURE?NO LATEX RISK : HAVE YOU EVER HAD ANY DIFFICULTY BREATHING OR HIVES AFTER EATING OR HANDLING ANY FRUITS, OR VEGETABLES; SUCH KIWI, BANANAS, STONE FRUITS, OR CHESTNUTSNO LATEX RISK : DO YOU HAVE A PREVIOUS PERSONAL HISTORY OF MORE THAN NINE SURGERIES, SPINA BIFIDA, OR REPEATED CATHERTIZATIONS? NO LATEX RISK : ARE YOU FREQUENTLY EXPOSED TO LATEX PRODUCTS IN YOUR OCCUPATION?NO DATE ASKED : 09/13/2018 CAFFEINE CAFFEINE USE?YES 3 CUP PER COFFEE PER DAY ADVANCE DIRECTIVE ADVANCE DIRECTIVE DISCUSSED WITH PATIENT:YES PT. DECLINES INFORMATION RESTORATIONISM [id number] RESTORATIONISM WICCAN MARITAL STATUS: .. ALCOHOL SCREENING DID YOU HAVE A DRINK CONTAINING ALCOHOL IN THE PAST YEAR?YES HOW OFTEN DID YOU HAVE A DRINK CONTAINING ALCOHOL IN THE PAST YEAR?MONTHLY OR LESS (1 POINT) HOW MANY DRINKS DID YOU HAVE ON A TYPICAL DAY WHEN YOU WERE DRINKING IN THE PAST YEAR?3 OR 4 (1 POINT) HOW OFTEN DID YOU HAVE SIX OR MORE DRINKS ON ONE OCCASION IN THE PAST YEAR?LESS THAN MONTHLY (1 POINT) POINTS3 INTERPRETATIONPOSITIVE OCCUPATION: DISABLED. HOSPITALIZATION/MAJOR DIAGNOSTIC PROCEDURE PNEUMONIA 2009 ACCIDENTAL DRINKING PAINT THINNER 2015 SURGERY RELATED REVIEW OF SYSTEMS REVIEWED BY: PROVIDER: . CONSTITUTIONAL: ANY CHANGE IN YOUR MEDICAL CONDITION? NO . CHILLS NO . FEVER NO . INFECTION: DO YOU HAVE NEW INFECTIONS? NO . DO YOU HAVE HISTORY OF MRSA? NO . MUSCULOSKELETAL: ANY NEW PATTERNS OF PAIN OR NUMBNESS? NO . GASTROENTEROLOGY: ANY NEW CHANGE IN BOWEL CONTROL? NO . GENITOURINARY: ANY NEW CHANGE IN BLADDER CONTROL? NO . IS THERE A CHANCE YOU COULD BE ? NO . HEMATOLOGY/LYMPH: DO YOU TAKE ANY BLOOD THINNERS? (FOR EXAMPLE- COUMADIN, PLAVIX, AGGRENOX, PLATEL, PRADAXA, OR XARELTO) NO . WHEN WAS YOUR LAST DOSE? DATE: TIME: . NEUROLOGY: HAVE YOU FALLEN IN THE PAST 12 MONTHS? YES, LAST WEEK FELL ON SLIPPERY SURFACE . ANY NEW EXTREMITY NUMBNESS OR WEAKNESS? NO . CARDIOLOGY: DO YOU HAVE A PACEMAKER OR DEFIBRILLATOR? NO . RESPIRATORY: HAVE YOU BEEN SICK IN THE PAST WEEK? NO . FEVER NO . FLU LIKE SYMPTOMS? NO . COUGH NO . INTEGUMENTARY: DO YOU HAVE ANY RASHES OR OPEN SORES? NO . ALLERGIC/IMMUNO: ARE YOU ALLERGIC TO IV DYE? NO . ANY NEW ALLERGIES? NO . PSYCHIATRIC: DO YOU HAVE THOUGHTS OF HURTING YOURSELF OR SOMEONE ELSE? NO . ARE YOU ABUSED, NEGLECTED, OR IN AN UNSAFE ENVIRONMENT? NO . ENDOCRINOLOGY: ARE YOU DIABETIC? NO . OTHER: DO YOU NEED ANY PRESCRIPTIONS? NO . IF YES, PLEASE LIST: ____ . ANY NEW PROBLEMS WITH YOUR MEDICATIONS? NO . WHEN DID YOU LAST EAT? 10/14/180 . WHEN DID YOU LAST DRINK? 10/15/18 . WHAT DID YOU LAST DRINK? WATER . NAME OF PERSON DRIVING YOU HOME? YELLOW CAB . DO YOU HAVE ANY OTHER QUESTIONS OR CONCERNS NO . VITAL SIGNS WT 415 LBS, HT 67 IN, BMI 64.99 INDEX, BP 162/79 MM HG, HR 68 /MIN, RR 18 /MIN, TEMP 97.3 F, OXYGEN SAT % 95%, NA INITIALS SC 11:30, REVIEWED BY: EM. ASSESSMENTS MYALGIA, OTHER SITE - M79.18 (PRIMARY) PROCEDURES PN TRIGGER POINT INJECTION WITH STEROIDS PRE PROCEDURE DIAGNOSIS 1. MYALGIA 2. PAIN AT BILATERAL NECK AREA. POST PROCEDURE DIAGNOSIS 1. MYALGIA 2. PAIN AT BILATERAL NECK AREA. PROCEDURE TRIGGER POINT INJECTION AT BILATERAL NECK AREA. SURGEON DR. NAYLA MORRELL CONTINUITY TESTER NONE ANESTHESIA LOCAL PRE PROCEDURE NOTE THE PATIENT HAS A HISTORY OF CHRONIC PAIN AT THE RIGHT AND LEFT NECK AREA. I EVALUATED THE PATIENT AND REVIEWED THE CHART. THERE IS EVIDENCE OF BANDS OF TISSUE WITH RESTRICTION OF MOVEMENT AND PRESENCE OF TRIGGER POINT AT THE AFFECTED AREA. I WENT OVER THE RISKS, ALTERNATIVES, AND BENEFITS ASSOCIATED WITH THIS PROCEDURE. THE PATIENT WOULD LIKE TO PROCEED AND GIVE CONSENT TO PERFORMED THE PROCEDURE. THE PATIENT DENIES UNEXPLAINABLE WEIGHT LOSS, FEVER, CHILLS, OR NEW CHANGES IN URINARY OR BOWEL CONTROL DESCRIPTION OF PROCEDURE THE PATIENT WAS BROUGHT TO THE PROCEDURE ROOM AND PLACED IN THE SITTING POSITION. THE AREA WAS CLEANED WITH ALCOHOL. THE PROCEDURE WAS DONE USING ASEPTIC STERILE TECHNIQUE. I CHECKED LATERALITY AND THE LEVEL WHERE THE PROCEDURE WAS GOING TO BE PERFORMED WITH THE PATIENT AND THE SUPPORTING STAFF AT THE MOMENT OF THE TIME OUT IN THE PROCEDURE ROOM. USING A 25-GAUGE NEEDLE, TRIGGER POINTS WERE INJECTED AT THE RIGHT AND LEFT NECK AREA WITH A TOTAL OF 40 ML OF BUPIVACAINE 0.25% AND KENALOG 40 MG. THERE WAS NO EVIDENCE OF BLOOD, PARESTHESIA OR CEREBROSPINAL FLUID DURING THE PROCEDURE. THE PATIENT WAS SENT TO THE RECOVERY ROOM. THE PATIENT WAS MOVING THE EXTREMITIES AND DOING WELL. THERE WAS NO COMPLICATION DURING THE PROCEDURE POST PROCEDURE NOTE THE PATIENT WILL BE SEEN IN A FOLLOW UP IN THE NEXT FEW WEEKS. INSTRUCTIONS WERE GIVEN, QUESTIONS WERE ANSWERED, AND THE PATIENT EXPRESSED UNDERSTANDING AND AGREES WITH THE PLAN. I, CHINTAN PRADHAN, DOCUMENTED THE ABOVE INFORMATION ACTING A SCRIBE FOR DR. MORRELL. I HAVE REVIEWED THE ABOVE DOCUMENT, WRITTEN BY CHINTAN COOK AND I VERIFY THAT IT IS ACCURATE. PROCEDURE CODES 90122 INJ TRIGGER POINT / [facility] [place] DIS[place]ITION & COMMUNICATION FOLLOW UP 3 WEEKS ELECTRONICALLY SIGNED BY NAYLA MORRELL MD, MD ON 10/27/2018 AT 05:02 PM EDT DISCLAIMER : THIS IS A VISIT SUMMARY EXTRACTED FROM THE [employer] CHART. IT IS NOT A COPY OF THE [employer] PROGRESS NOTE. MTDD
== END ==
LOC: M PAIN 12:00
PROVIDERS: ATTEND Anesthesiology
DX: M79.18 Myalgia, other site (principal); M54.5 Low back pain; J44.9 Chronic obstructive pulmonary disease, unspecified; E03.9 Hypothyroidism, unspecified; E11.9 Type 2 diabetes mellitus without complications; M19.90 Unspecified osteoarthritis, unspecified site; Z72.0 Tobacco use; E66.01 Morbid (severe) obesity due to excess calories; Z68.44 Body mass index [BMI] 60.0-69.9, adult; Z79.899 Other long term (current) drug therapy; Z88.8 Allergy status to other drugs, medicaments and biological substances; Z86.59 Personal history of other mental and behavioral disorders
CPT/HCPCS: 20552; J3301

== ENCOUNTER 2019-02-13 10:44 | Emergency (ER) | payer MEDICARE, MEDICAID ==
[~2019-02-13] VITALS: Ht 170.2 cm; Wt 178.3 kg
[~2019-02-13 10:44] MED LIST changes: -BUPIVACAINE HCL 0.25% 10 ML VIAL As Ordered ONE; -BUPIVACAINE HCL 0.25% 30 ML VIAL As Ordered ONE; -TRAZ-160 PO; +TRAZ-252 PO; -TRIAMCINOLONE ACETONIDE SUSP 40 MG/ML VIAL (J3301) As Ordered ONE; -diazePAM 5 MG TAB As Ordered ONE; -oxyCODONE 5MG TAB As Ordered ONE
[2019-02-13] MEDS ORDERED: TRAZ-252 PO (11:17)
[2019-02-13] MEDS ORDERED: INSULANT SQ (11:17)
[2019-02-13] MEDS ORDERED: INSURSD (11:17)
[2019-02-13] MEDS ORDERED: CYCL10TA PO (11:17)
[2019-02-13] MEDS ORDERED: NS 1,000 ML IV ONE (12:30)
[2019-02-13] MEDS ORDERED: KETOROLAC 30 MG/ML VIAL (J1885) IV ONE (12:30)
[2019-02-13 12:49] LABS: BASO % 0.5 % (0.0-1.0); EOS # 0.1 10^3/uL (0.0-0.50); EOS % 1.4 % (0.0-3.0); HEMATOCRIT 43.9 % (36.0-47.0); HEMOGLOBIN 14.5 g/dl (12.0-15.5); LYMPH # 1.1 10^3/uL (1.5-4.5); MEAN CORPUSCULAR HEMOGLOBIN 33.6 pg (27.0-33.0); MEAN CORPUSCULAR VOLUME 101.9 fl (80.0-96.0); MONO # 0.3 10^3/uL (0.0-0.8); MONO % 4.9 % (0.0-5.0); NEUTROPHILS # 4.2 10^3/uL (1.8-7.7); NEUTROPHILS % 73.8 % (36.0-66.0); PLATELET COUNT, AUTOMATED 227 10^3/uL (150-450); RED BLOOD COUNT 4.31 10^6/uL (4.00-5.40); WHITE BLOOD COUNT 5.7 10^3/uL (4.0-10.0)
[2019-02-13] MEDS ORDERED: ISOVUE-370 76% 100ML VIAL (Q9967) As Ordered ONE (13:56)
[2019-02-13 14:02] LABS: ALBUMIN 2.9 GM/DL (3.2-5.2); ALT/SGPT 103 U/L (12-78); BILIRUBIN,DIRECT 0.2 MG/DL (0.0-0.2); BILIRUBIN,TOTAL 0.8 MG/DL (0.2-1.0); LIPASE 104 U/L (73-393)
--- NOTE | 2019-02-13 14:35 | REP ---
CT of the abdomen and pelvis with IV contrast, without bowel contrast for abdominal pain: Comparison is 07/30/2015. The visualized lung cope are unremarkable. The liver appears enlarged and heterogeneous. This may represent diffuse hepatocellular disease or hepatic steatosis. There are no hepatic masses. The gallbladder, pancreas, spleen, adrenals, kidneys, and abdominal aorta are unremarkable. There is no retroperitoneal adenopathy or mass. There is no bowel distension or obstruction. There are a few diverticula in the sigmoid colon. There is no CT evidence of diverticulitis. Pelvis: The terminal ileum and appendix are unremarkable. The bladder is unremarkable. The uterus and adnexa are unremarkable. There is no adenopathy or ascites. Impression: Hepatomegaly and inhomogeneous hepatic parenchyma. This is unchanged and compatible with diffuse hepatocellular disease/hepatic steatosis. There are no hepatic masses. There is no ascites. Otherwise, negative CT of the abdomen and pelvis. Electronically Signed by Torin Miller MD 02/13/2019 02:26 P
[2019-02-13 15:02] LABS: HEPATITIS B SURFACE ANTIGEN NEGATIVE (NEGATIVE)
[2019-02-13] MEDS ORDERED: KETO10TAB PO (15:17)
[2019-02-13 15:30] VITALS: BP 147/70
[2019-02-13] MEDS ORDERED: DICL50TAB PO (16:53)
[2019-02-14 10:56] LABS: HEPATITIS B CORE ANTIBODY IGM NEGATIVE (NEGATIVE)
[2019-02-14 10:59] LABS: HEPATITIS A ANTIBODY IGM NEGATIVE (NEGATIVE)
== END 2019-02-13 15:32 | disposition home or self-care (01) ==
LOC: M ED 10:44
DX: R10.9 Unspecified abdominal pain (principal); K76.0 Fatty (change of) liver, not elsewhere classified; I10 Essential (primary) hypertension; M54.9 Dorsalgia, unspecified; M79.7 Fibromyalgia; J44.9 Chronic obstructive pulmonary disease, unspecified; R16.0 Hepatomegaly, not elsewhere classified; F17.210 Nicotine dependence, cigarettes, uncomplicated; Z79.51 Long term (current) use of inhaled steroids; Z79.899 Other long term (current) drug therapy; Z88.1 Allergy status to other antibiotic agents; Z88.8 Allergy status to other drugs, medicaments and biological substances
CPT/HCPCS: 74177; 80047; 80076; 81001; 83690; 85025; 86705; 86709; 86803; 87340; 96361; 96374; 99284; J1885; Q9967

== ENCOUNTER → 2019-03-14 | Outpatient (CLI) | payer MEDICARE, MEDICAID ==
[~2019-03-14] MED LIST changes: +DICL50TAB PO; +INSULANT SQ; +INSURSD; +KETO10TAB PO
--- NOTE | 2019-03-22 01:21 | ECWPNPC ---
PATIENT NAME: RUKHSANA JUÁREZ : 1970 GENDER: FEMALE VISIT DATE: 03/14/2019 DISCHARGE DATE: 03/14/19 1441 VISIT LOCKED DATE TIME: PHYSICIAN: NAYLA MORRELL MD RESOURCE: NAYLA MORRELL MD REASON FOR APPOINTMENT 1. POST TPI HISTORY OF PRESENT ILLNESS HISTORY OF PRESENT ILLNESS: PAIN THE PATIENT DESCRIBES THE PAIN... 49 YEAR OLD FEMALE PATIENT WITH A HISTORY OF CHRONIC NECK AND LOW BACK PAIN. THE PATIENT DESCRIBES THE PAIN ACHING, BURNING, SORE, TENDER, SHARP, STABBING, SHOOTING, NUMBING, TINGLING, AND CONTINUOUS WITH A PAIN SCORE OF 5-8/10 DEPENDING ON PHYSICAL ACTIVITY. THE PATIENT STATES SHE HAS BEEN SUFFERING FROM THIS PAIN FOR A LONG TIME. THE PATIENT RECEIVED BILATERAL NECK TRIGGER POINT INJECTIONS ON 10/15/2018, WHICH SHE SAYS HELPED GIVE HER OVER 3 MONTHS OF GOOD PAIN RELIEF. THE PATIENT SAYS THE TRIGGER POINT INJECTION HELPED GIVE HER INCREASED FUNCTIONALITY AND MOBILITY DURING THOSE MONTHS. PATIENT DENIES UNEXPLAINABLE WEIGHT LOSS, FEVER, CHILLS, NEW CHANGES ON HER URINARY OR BOWEL CONTROL. FALL RISK SCREENING: SCREENING :NO FALLS REPORTED IN THE LAST YEAR CURRENT MEDICATIONS TAKING GLIPIZIDE 5 MG TABLET 1 TABLET ORALLY ONCE A DAY TAKING LEVOTHYROXINE SODIUM 112 MCG TABLET 1 TABLET ON AN EMPTY STOMACH IN THE MORNING ORALLY ONCE A DAY TAKING CYCLOBENZAPRINE HCL 10 MG TABLET 1 TABLET NEEDED ORALLY THREE TIMES A DAY TAKING GABAPENTIN 300 MG CAPSULE 1 CAPSULE ORALLY BID TAKING IBUPROFEN 200 MG TABLET 4 TABS ORALLY FOUR TIMES DAILY NEEDED TAKING TRAZODONE HCL 100 MG TABLET 1 TABLET AT BEDTIME ORALLY ONCE A DAY TAKING NYQUIL COLD & FLU 8 MG 1 CAP FULL ORALLY NEEDED BEFORE BEDTIME TAKING LIDOCAINE & ADHESIVE SHEET 5 % KIT DIRECTED EXTERNALLY NOT-TAKING TRADJENTA 5 MG TABLET 1 TABLET ORALLY ONCE A DAY NOT-TAKING TRULICITY 1.5 MG/0.5ML SOLUTION PEN-INJECTOR DIRECTED SUBCUTANEOUS MEDICATION LIST REVIEWED AND RECONCILED WITH THE PATIENT PAST MEDICAL HISTORY ASTHMA COPD HYPOTHYROIDISM DIABETES IDDM ANEMIA OBESEITY BACK PAIN ARTHRITIS PTSD DEPRESSION ANXIETY / PANIC ATTACKS, AGORAPHOBIA, CLAUSTORPHOBIA LEGALLY BLIND ALLERGIES LYRICA: SEIZURES - ALLERGY WELLBUTRIN: SEIZURE - ALLERGY GLIMEPIRIDE: FACE SWELLING - ALLERGY SURGICAL HISTORY LEFT EYE RIGHT KNEE D&C 01/16 10/22/02 FAMILY HISTORY FATHER: 63 YRS, DIAGNOSED WITH DIABETES, OTHER MALIGNANT NEOPLASM OF UNSPECIFIED SITE MOTHER: 60 YRS, OTHER MALIGNANT NEOPLASM OF UNSPECIFIED SITE 1 BROTHER(S) , 3 SISTER(S) . 1 SON(S) , 2 DAUGHTER(S) . BROTHER - 2 ME IN 2018, PTSD,ANXIETY\NOLDEST SISTER HAS CANCER\NMIDDLE SISTER -HYPERTHYROIDISM, GRAVES DIEASE\NYOUNGEST SISTER DM, BONE DIEASE\NBOTH DAUGHTERS HAVE CHRONIC MESOSYTERIC LYMPGHADNITUS\NYOUNGEST DAUGHTER HAS A FATTY LIVER\EDWIN THREE CHILDREN HAVE ANXIETY. SOCIAL HISTORY GENERAL: TOBACCO USE ARE YOU A:CURRENT SMOKER ARE YOU INTERESTED IN QUITTING?THINKING ABOUT QUITTING COUNSELED THE PATIENT ON SMOKING CESSATION, EDUCATION [id number]/30/2019 PREVIOUS QUIT ATTEMPTS?YES, MORE THAN 6 MONTHS AGO. OTHERS AT HOME: NONE. HOUSING: RENTS APARTMENT. EDUCATION LEVEL OF EDUCATION:NOT FINISHED COLLEGE DIET: NO CONCENTRATED SWEETS., CONSISTENT CARBOHYDRATE. LANGUAGE LANGUAGES SPOKEN:INDONESIAN RECREATIONAL DRUG USE DRUG USE?YES MARIJUANA, BROWNIES HOW OFTEN AND HOW MUCH? ONCE EVERY 9-10 DAYS EXERCISE: WALKS OR SWIMS ONCE A WEEK. LEARNING BARRIERS / SPECIAL NEEDS BARRIERS TO LEARNING?NO HEARING IMPAIRED?NO VISION IMPAIRED?YES COGNITIVELY IMPAIRED?NO :CORRECTIVE LENSES READINESS TO LEARN?NO LEARNING PREFERENCES?NO PAIN CLINIC PFS, CLERGY, PUBLIC HEALTH REFERRALS PFS REFERRAL NEEDED?NO CLERGY REFERRAL NEEDED?NO PUBLIC HEALTH REFERRAL NEEDED?NO WAS THE PROVIDER NOTIFIED OF ANY PERTINENT INFO?NO HAS THE PATIENT BEEN EDUCATED REGARDING HIS/HER PLAN OF CARE?YES HAS THE PATIENT BEEN EDUCATED REGARDING PAIN, THE RISK FOR PAIN, THE IMPORTANCE OF EFFECTIVE PAIN MANAGEMENT, AND THE PAIN ASSESSMENT PROCESS?YES LATEX QUESTIONNAIRE LATEX ALLERGY : HAVE YOU EVER DEVELOPED ANY TYPE OF REACTION AFTER HANDLING LATEX PRODUCTS SUCH RUBBER GLOVES, CONDOMS, DIAPHRAGMS, BALLOONS, SOCKS, OR UNDERWEAR?NO LATEX ALLERGY : HAVE YOU EVER DEVELOPED ANY TYPE OF REACTION DURING OR AFTER DENTAL APPOINTMENT, VAGINAL/RECTAL EXAMINATION, SURGICAL PROCEDURE, OR ANY OTHER EXPOSURE?NO DATE ASKED : 09/13/2018 LATEX RISK : HAVE YOU EVER HAD ANY DIFFICULTY BREATHING OR HIVES AFTER EATING OR HANDLING ANY FRUITS, OR VEGETABLES; SUCH KIWI, BANANAS, STONE FRUITS, OR CHESTNUTSNO LATEX RISK : DO YOU HAVE A PREVIOUS PERSONAL HISTORY OF MORE THAN NINE SURGERIES, SPINA BIFIDA, OR REPEATED CATHERIZATIONS? NO LATEX RISK : ARE YOU FREQUENTLY EXPOSED TO LATEX PRODUCTS IN YOUR OCCUPATION?NO CAFFEINE CAFFEINE USE?YES 2-3 CUPS COFFEE PER WEEK ADVANCE DIRECTIVE ADVANCE DIRECTIVE DISCUSSED WITH PATIENT:YES PT. DECLINES INFORMATION MORMONISM [id number] YARSANISM WICCAN MARITAL STATUS: .. ALCOHOL SCREENING DID YOU HAVE A DRINK CONTAINING ALCOHOL IN THE PAST YEAR?YES HOW OFTEN DID YOU HAVE SIX OR MORE DRINKS ON ONE OCCASION IN THE PAST YEAR?LESS THAN MONTHLY (1 POINT) HOW MANY DRINKS DID YOU HAVE ON A TYPICAL DAY WHEN YOU WERE DRINKING IN THE PAST YEAR?3 OR 4 (1 POINT) HOW OFTEN DID YOU HAVE A DRINK CONTAINING ALCOHOL IN THE PAST YEAR?MONTHLY OR LESS (1 POINT) POINTS3 INTERPRETATIONPOSITIVE OCCUPATION: DISABLED. HOSPITALIZATION/MAJOR DIAGNOSTIC PROCEDURE PNEUMONIA 2009 ACCIDENTAL DRINKING PAINT THINNER 2016 SURGERY RELATED REVIEW OF SYSTEMS REVIEWED BY: PROVIDER: NAYLA MORRELL MD . CONSTITUTIONAL: ANY CHANGE IN YOUR MEDICAL CONDITION? NO . CHILLS NO . FEVER NO . INFECTION: DO YOU HAVE NEW INFECTIONS? NO . DO YOU HAVE HISTORY OF MRSA? NO . MUSCULOSKELETAL: ANY NEW PATTERNS OF PAIN OR NUMBNESS? YES - PAIN HAS RETURNED . GASTROENTEROLOGY: ANY NEW CHANGE IN BOWEL CONTROL? NO . GENITOURINARY: ANY NEW CHANGE IN BLADDER CONTROL? NO . IS THERE A CHANCE YOU COULD BE ? NO . HEMATOLOGY/LYMPH: DO YOU TAKE ANY BLOOD THINNERS? (FOR EXAMPLE- COUMADIN, PLAVIX, AGGRENOX, PLATEL, PRADAXA, OR XARELTO) NO . WHEN WAS YOUR LAST DOSE? DATE: TIME: . NEUROLOGY: HAVE YOU FALLEN IN THE PAST 12 MONTHS? NO . ANY NEW EXTREMITY NUMBNESS OR WEAKNESS? NO . CARDIOLOGY: DO YOU HAVE A PACEMAKER OR DEFIBRILLATOR? NO . RESPIRATORY: HAVE YOU BEEN SICK IN THE PAST WEEK? NO . FEVER NO . FLU LIKE SYMPTOMS? NO . COUGH NO . INTEGUMENTARY: DO YOU HAVE ANY RASHES OR OPEN SORES? NO . ALLERGIC/IMMUNO: ARE YOU ALLERGIC TO IV DYE? NO . ANY NEW ALLERGIES? NO . PSYCHIATRIC: DO YOU HAVE THOUGHTS OF HURTING YOURSELF OR SOMEONE ELSE? NO . ARE YOU ABUSED, NEGLECTED, OR IN AN UNSAFE ENVIRONMENT? NO . ENDOCRINOLOGY: ARE YOU DIABETIC? YES . OTHER: DO YOU NEED ANY PRESCRIPTIONS? YES - FLEXERIL, GABAPENTIN . IF YES, PLEASE LIST: ____ . ANY NEW PROBLEMS WITH YOUR MEDICATIONS? NO . WHEN DID YOU LAST EAT? ____ . WHEN DID YOU LAST DRINK? ____ . WHAT DID YOU LAST DRINK? ____ . NAME OF PERSON DRIVING YOU HOME? ____ . DO YOU HAVE ANY OTHER QUESTIONS OR CONCERNS CAN I HAVE A TRIGGER POINT INJECTION IN LOWER BACK AND HIPS - THAT WOULD HELP ME TO WALK FURTHER MAYBE TO LOSE MORE WEIGHT . VITAL SIGNS WT 383.8 LBS, HT 67 IN, BMI 60.11 INDEX, BP 164/75 MM HG, HR 78 /MIN, RR 18 /MIN, TEMP 96.4 F, OXYGEN SAT % 94%, NA INITIALS SC 13:44, REVIEWED BY: LS. EXAMINATION GENERAL EXAMINATION: PATIENT IS ALERT O X 3 AND COOPERATIVE. PRESENCE OF BANDS OF TISSUE AND TRIGGER POINTS WITH RESTRICTION OF MOVEMENT OF THE NECK AND LOW BACK AREAS. ASSESSMENTS MYALGIA, OTHER SITE - M79.18 (PRIMARY) TREATMENT MYALGIA, OTHER SITE CLINICAL NOTES: WE DISCUSSED SEVERAL ISSUES WITH MS. JUÁREZ'S PAIN MANAGEMENT CASE. DUE TO THE TRIGGER POINTS, BANDS OF TISSUE, AND RESTRICTION OF MOVEMENT, I WOULD LIKE TO MOVE FORWARD WITH A NECK TRIGGER POINT INJECTION AT THIS TIME. WE DISCUSSED THE BENEFITS, RISKS, AND ALTERNATIVES OF THE INJECTION AND THE PATIENT WOULD LIKE TO PROCEED. AFTER THE NECK INJECTION, I WOULD LIKE PERFORM LOW BACK TRIGGER POINT INJECTIONS TWO WEEKS AFTERWARD. I WILL START THE PATIENT ON VOLTAREN GEL TO BE USED EVERY 4 HOURS TO AID IN PAIN RELIEF. THE PATIENT WILL FOLLOW UP IN SEVERAL WEEKS AFTER HER INJECTIONS. INSTRUCTIONS WERE GIVEN, QUESTIONS WERE ANSWERED, PATIENT REPORTS UNDERSTANDING AND AGREES WITH THE PLAN. I, CHINTAN PRADHAN, DOCUMENTED THE ABOVE INFORMATION ACTING A SCRIBE FOR DR. MORRELL. I HAVE REVIEWED THE ABOVE DOCUMENT, WRITTEN BY CHINTAN COOK AND I VERIFY THAT IT IS ACCURATE. . OTHERS START DICLOFENAC SODIUM GEL, 3 %, 1 APPLICATION TO AFFECTED AREA, TRANSDERMAL, EVERY 4 HOURS NEEDED, 30 DAY(S), 1, REFILLS 1 PREVENTIVE MEDICINE PAIN CLINIC TEACHING: PROCEDURE TEACHING TRIGGER POINT INJECTION INFORMATION PRITNED AND REVIEWED WITH PT 03/14/19 6595 NLJ. PROCEDURE CODES [id number] ESTABILISHED PATIENT [facility] FACILITY CHARGE G8427 CURRENT MEDS W/DOSAGES DOCUMENTED G8730 PAIN ASSESS POS TOOL F/U PLAN DOC DISPOSITION & COMMUNICATION FOLLOW UP REASON: TPI NECK, TPI LB 2 WEEK LATER ELECTRONICALLY SIGNED BY NAYLA MORRELL MD, MD ON 03/21/2019 AT 05:53 PM EDT DISCLAIMER : THIS IS A VISIT SUMMARY EXTRACTED FROM THE [employer] CHART. IT IS NOT A COPY OF THE [employer] PROGRESS NOTE. MTDD
== END ==
LOC: M PAIN 13:15
PROVIDERS: ATTEND Anesthesiology
DX: M79.18 Myalgia, other site (principal); J44.9 Chronic obstructive pulmonary disease, unspecified; E03.9 Hypothyroidism, unspecified; E11.9 Type 2 diabetes mellitus without complications; M19.90 Unspecified osteoarthritis, unspecified site; Z86.59 Personal history of other mental and behavioral disorders; F17.210 Nicotine dependence, cigarettes, uncomplicated; Z88.8 Allergy status to other drugs, medicaments and biological substances; E66.01 Morbid (severe) obesity due to excess calories; Z68.44 Body mass index [BMI] 60.0-69.9, adult; Z79.899 Other long term (current) drug therapy

== ENCOUNTER → 2019-05-28 | Outpatient (CLI) | payer MEDICARE, MEDICAID ==
[~2019-05-28] MED LIST changes: +BUPIVACAINE HCL 0.25% 10 ML VIAL As Ordered ONE; +BUPIVACAINE HCL 0.25% 30 ML VIAL As Ordered ONE; +FLAG500T PO; -GLIM2TAB PO; +GLIM2TAB2 PO; +TRIAMCINOLONE ACETONIDE SUSP 40 MG/ML VIAL (J3301) As Ordered ONE; +diazePAM 5 MG TAB As Ordered ONE; +oxyCODONE 5MG TAB As Ordered ONE
--- NOTE | 2019-06-04 04:37 | ECWPNPC ---
PATIENT NAME: RUKHSANA JUÁREZ : 1970 GENDER: FEMALE VISIT DATE: 05/28/2019 DISCHARGE DATE: 05/28/19 1123 VISIT LOCKED DATE TIME: PHYSICIAN: NAYLA MORRELL MD RESOURCE: NAYLA MORRELL MD REASON FOR APPOINTMENT 1. TPI, BILAT NECK & SHOULDERS HISTORY OF PRESENT ILLNESS HISTORY OF PRESENT ILLNESS: PAIN THE PATIENT DESCRIBES THE PAIN... FALL RISK SCREENING: SCREENING :NO FALLS REPORTED IN THE LAST YEAR CURRENT MEDICATIONS TAKING GLIPIZIDE 5 MG TABLET 1 TABLET ORALLY ONCE A DAY, NOTES: 05/27 TAKING LEVOTHYROXINE SODIUM 112 MCG TABLET 1 TABLET ON AN EMPTY STOMACH IN THE MORNING ORALLY ONCE A DAY, NOTES: 05/27 TAKING CYCLOBENZAPRINE HCL 10 MG TABLET 1 TABLET NEEDED ORALLY THREE TIMES A DAY, NOTES: 05/27 TAKING GABAPENTIN 300 MG CAPSULE 1 CAPSULE ORALLY BID, NOTES: 05/26 TAKING IBUPROFEN 200 MG TABLET 4 TABS ORALLY FOUR TIMES DAILY NEEDED, NOTES: 05/27 TAKING TRAZODONE HCL 100 MG TABLET 1 TABLET AT BEDTIME ORALLY ONCE A DAY, NOTES: COUPLE DAYS TAKING NYQUIL COLD & FLU 8 MG 1 CAP FULL ORALLY NEEDED BEFORE BEDTIME, NOTES: COUPLE DAY AGO TAKING LANTUS 100 UNIT/ML SOLUTION DIRECTED SUBCUTANEOUS 20 UNITS IN AM, 22 UNITS IN PM, NOTES: 05/27 TAKING NOVOLIN R 100 UNIT/ML SOLUTION DIRECTED INJECTION SLIDING SCALE, NOTES: COUPLE DAYS AGO TAKING THERAFLU COLD & COUGH 10-20-20 MG PACKET 1 PACKET MIXED WITH 8 OUNCES OF HOT WATER NEEDED ORALLY EVERY 4 HRS, NOTES: COUPLE DAYS AGO NOT-TAKING DICLOFENAC SODIUM 3 % GEL 1 APPLICATION TO AFFECTED AREA TRANSDERMAL EVERY 4 HOURS NEEDED, NOTES: NOT USED -INSURANE WOULD NOT COVER NOT-TAKING LIDOCAINE & ADHESIVE SHEET 5 % KIT DIRECTED EXTERNALLY , NOTES: INSURANCE WOULD NOT COVER NOT-TAKING MELOXICAM 15 MG TABLET 1 TABLET ORALLY WITH FOOD ( DO NOT USE IBUPROFEN WHEN USING THIS MEDICATION) ONCE A DAY FOR PAIN NOT-TAKING TRADJENTA 5 MG TABLET 1 TABLET ORALLY ONCE A DAY NOT-TAKING TRULICITY 1.5 MG/0.5ML SOLUTION PEN-INJECTOR DIRECTED SUBCUTANEOUS MEDICATION LIST REVIEWED AND RECONCILED WITH THE PATIENT PAST MEDICAL HISTORY ASTHMA COPD HYPOTHYROIDISM DIABETES IDDM ANEMIA OBESEITY BACK PAIN ARTHRITIS PTSD DEPRESSION ANXIETY / PANIC ATTACKS, AGORAPHOBIA, CLAUSTORPHOBIA LEGALLY BLIND ALLERGIES LYRICA: SEIZURES - ALLERGY WELLBUTRIN: SEIZURE - ALLERGY GLIMEPIRIDE: FACE SWELLING - ALLERGY SURGICAL HISTORY LEFT EYE 1970'S RIGHT KNEE D&C 01/16 10/22/02 FAMILY HISTORY FATHER: 63 YRS, DIAGNOSED WITH DIABETES, OTHER MALIGNANT NEOPLASM OF UNSPECIFIED SITE MOTHER: 60 YRS, OTHER MALIGNANT NEOPLASM OF UNSPECIFIED SITE 1 BROTHER(S) , 3 SISTER(S) . 1 SON(S) , 2 DAUGHTER(S) . BROTHER - 2 [place] IN 2018, PTSD,ANXIETY\NOLDEST SISTER HAS CANCER\NMIDDLE SISTER -HYPERTHYROIDISM, GRAVES DIEASE\NYOUNGEST SISTER DM, BONE DIEASE\NBOTH DAUGHTERS HAVE CHRONIC MESOSYTERIC LYMPGHADNITUS\NYOUNGEST DAUGHTER HAS A FATTY LIVER\EDWIN THREE CHILDREN HAVE ANXIETY. SOCIAL HISTORY GENERAL: TOBACCO USE ARE YOU A:CURRENT SMOKER ARE YOU INTERESTED IN QUITTING?THINKING ABOUT QUITTING PREVIOUS QUIT ATTEMPTS?YES, MORE THAN 6 MONTHS AGO. COUNSELED THE PATIENT ON SMOKING CESSATION, EDUCATION [id number]/2019 PAIN CLINIC PFS, CLERGY, PUBLIC HEALTH REFERRALS PFS REFERRAL NEEDED?NO CLERGY REFERRAL NEEDED?NO PUBLIC HEALTH REFERRAL NEEDED?NO WAS THE PROVIDER NOTIFIED OF ANY PERTINENT INFO?NO HAS THE PATIENT BEEN EDUCATED REGARDING HIS/HER PLAN OF CARE?YES HAS THE PATIENT BEEN EDUCATED REGARDING PAIN, THE RISK FOR PAIN, THE IMPORTANCE OF EFFECTIVE PAIN MANAGEMENT, AND THE PAIN ASSESSMENT PROCESS?YES ADVANCE DIRECTIVE ADVANCE DIRECTIVE DISCUSSED WITH PATIENT:YES PT. 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 CONSTITUTIONAL: ANY CHANGE IN YOUR MEDICAL CONDITION? NO . CHILLS NO . FEVER NO . INFECTION: DO YOU HAVE NEW INFECTIONS? NO . DO YOU HAVE HISTORY OF MRSA? NO . MUSCULOSKELETAL: ANY NEW PATTERNS OF PAIN OR NUMBNESS? NO . GASTROENTEROLOGY: ANY NEW CHANGE IN BOWEL CONTROL? NO . GENITOURINARY: ANY NEW CHANGE IN BLADDER CONTROL? NO . IS THERE A CHANCE YOU COULD BE ? NO . HEMATOLOGY/LYMPH: DO YOU TAKE ANY BLOOD THINNERS? (FOR EXAMPLE- COUMADIN, PLAVIX, AGGRENOX, PLATEL, PRADAXA, OR XARELTO) NO . WHEN WAS YOUR LAST DOSE? DATE: TIME: . NEUROLOGY: HAVE YOU FALLEN IN THE PAST 12 MONTHS? YES, PT STATES SHE TRIPPED ON SIDEWALK AND FELL ONTO RIGHT KNEE ABOUT 5 WEEKS AGO. STATES SHE SCRAPED HER RIGHT KNEE, BUT WAS NOT TREATED AT ED. . ANY NEW EXTREMITY NUMBNESS OR WEAKNESS? NO . CARDIOLOGY: DO YOU HAVE A PACEMAKER OR DEFIBRILLATOR? NO . RESPIRATORY: HAVE YOU BEEN SICK IN THE PAST WEEK? NO . FEVER NO . FLU LIKE SYMPTOMS? NO . COUGH NO . INTEGUMENTARY: DO YOU HAVE ANY RASHES OR OPEN SORES? NO . ALLERGIC/IMMUNO: ARE YOU ALLERGIC TO IV DYE? NO . ANY NEW ALLERGIES? NO . PSYCHIATRIC: DO YOU HAVE THOUGHTS OF HURTING YOURSELF OR SOMEONE ELSE? NO . ARE YOU ABUSED, NEGLECTED, OR IN AN UNSAFE ENVIRONMENT? NO . ENDOCRINOLOGY: ARE YOU DIABETIC? YES PT STATES SHE IS BORDERLINE DIABETIC, STATES SHE DOES NOT CHECK HER FINGERSTICK BLOOD GLUCOSE . OTHER: DO YOU NEED ANY PRESCRIPTIONS? NO . IF YES, PLEASE LIST: ____ . ANY NEW PROBLEMS WITH YOUR MEDICATIONS? NO . WHEN DID YOU LAST EAT? YES, 05/27/19 1900 . WHEN DID YOU LAST DRINK? 05/28/19 0800 . WHAT DID YOU LAST DRINK? WATER . NAME OF PERSON DRIVING YOU HOME? RAE . DO YOU HAVE ANY OTHER QUESTIONS OR CONCERNS NO . VITAL SIGNS WT 384.6 LBS, HT 67 IN, BMI 60.23 INDEX, BP 141/76 MM HG, HR 77 /MIN, RR 18 /MIN, TEMP 97.6 F, OXYGEN SAT % 95%, SAFE IN ENV? (Y/N) Y, NA INITIALS 10:00, REVIEWED BY: BV. ASSESSMENTS MYALGIA, OTHER SITE - M79.18 (PRIMARY) PROCEDURES PN TRIGGER POINT INJECTION WITH STEROIDS PRE PROCEDURE DIAGNOSIS 1. MYALGIA 2. PAIN AT BILATERAL NECK AREA AND BILATERAL SHOULDER AREA. POST PROCEDURE DIAGNOSIS 1. MYALGIA 2. PAIN AT BILATERAL NECK AREA AND BILATERAL SHOULDER AREA. PROCEDURE TRIGGER POINT INJECTION AT RIGHT AND LEFT NECK AREA AND RIGHT AND LEFT SHOULDER AREA. SURGEON DR. NAYLA MORRELL ELECTRONIC TEST TECHNICIAN NONE ANESTHESIA LOCAL PRE PROCEDURE NOTE THE PATIENT HAS A HISTORY OF CHRONIC PAIN AT THE RIGHT AND LEFT NECK AREA AND RIGHT AND LEFT SHOULDER AREA. I EVALUATED THE PATIENT AND REVIEWED THE CHART. THERE IS EVIDENCE OF BANDS OF TISSUE WITH RESTRICTION OF MOVEMENT AND PRESENCE OF TRIGGER POINT AT THE AFFECTED AREA. I WENT OVER THE RISKS, ALTERNATIVES, AND BENEFITS ASSOCIATED WITH THIS PROCEDURE. THE PATIENT WOULD LIKE TO PROCEED AND GIVES CONSENT TO PERFORM THE PROCEDURE. THE PATIENT DENIES UNEXPLAINABLE WEIGHT LOSS, FEVER, CHILLS, OR NEW CHANGES IN URINARY OR BOWEL CONTROL DESCRIPTION OF PROCEDURE THE PATIENT WAS BROUGHT TO THE PROCEDURE ROOM AND PLACED IN THE SITTING POSITION. THE AREA WAS CLEANED WITH ALCOHOL. THE PROCEDURE WAS DONE USING ASEPTIC STERILE TECHNIQUE. I CHECKED LATERALITY AND THE LEVEL WHERE THE PROCEDURE WAS GOING TO BE PERFORMED WITH THE PATIENT AND THE SUPPORTING STAFF AT THE MOMENT OF THE TIME OUT IN THE PROCEDURE ROOM. USING A 25-GAUGE NEEDLE, TRIGGER POINTS WERE INJECTED AT THE RIGHT AND LEFT NECK AREA AND RIGHT AND LEFT SHOULDER AREA WITH A TOTAL OF 40 ML OF BUPIVACAINE 0.25% AND KENALOG 40 MG. THERE WAS NO EVIDENCE OF BLOOD, PARESTHESIA OR CEREBROSPINAL FLUID DURING THE PROCEDURE. THE PATIENT WAS SENT TO THE RECOVERY ROOM. THE PATIENT WAS MOVING THE EXTREMITIES AND DOING WELL. THERE WAS NO COMPLICATION DURING THE PROCEDURE POST PROCEDURE NOTE THE PATIENT WILL BE SEEN IN A FOLLOW UP IN THE NEXT FEW WEEKS. INSTRUCTIONS WERE GIVEN, QUESTIONS WERE ANSWERED, AND THE PATIENT EXPRESSED UNDERSTANDING AND AGREES WITH THE PLAN. I, CHINTAN PRADHAN, DOCUMENTED THE ABOVE INFORMATION ACTING A SCRIBE FOR DR. MORRELL. I HAVE REVIEWED THE ABOVE DOCUMENT, WRITTEN BY CHINTAN COOK AND I VERIFY THAT IT IS ACCURATE. PROCEDURE CODES 45576 INJECT TRIGGER POINTS 3/> DISPOSITION & COMMUNICATION FOLLOW UP 3 WEEKS ELECTRONICALLY SIGNED BY NAYLA MORRELL MD, MD ON 06/03/2019 AT 10:55 AM EST DISCLAIMER : THIS IS A VISIT SUMMARY EXTRACTED FROM THE [employer] CHART. IT IS NOT A COPY OF THE [employer] PROGRESS NOTE. ANÍBAL
== END ==
LOC: M PAIN 10:00
PROVIDERS: ATTEND Anesthesiology
DX: M79.18 Myalgia, other site (principal); J44.9 Chronic obstructive pulmonary disease, unspecified; E03.9 Hypothyroidism, unspecified; E11.9 Type 2 diabetes mellitus without complications; Z86.59 Personal history of other mental and behavioral disorders; F17.210 Nicotine dependence, cigarettes, uncomplicated; Z88.8 Allergy status to other drugs, medicaments and biological substances; E66.01 Morbid (severe) obesity due to excess calories; Z68.44 Body mass index [BMI] 60.0-69.9, adult; Z79.4 Long term (current) use of insulin; Z79.899 Other long term (current) drug therapy
CPT/HCPCS: 20553; J3301

== ENCOUNTER 2019-05-29 18:18 | Emergency (ER) | payer MEDICARE, MEDICAID ==
[~2019-05-29] VITALS: Ht 170.2 cm; Wt 160.4 kg
[~2019-05-29 18:18] MED LIST changes: -BUPIVACAINE HCL 0.25% 10 ML VIAL As Ordered ONE; -BUPIVACAINE HCL 0.25% 30 ML VIAL As Ordered ONE; -FLAG500T PO; -TRIAMCINOLONE ACETONIDE SUSP 40 MG/ML VIAL (J3301) As Ordered ONE; -diazePAM 5 MG TAB As Ordered ONE; -oxyCODONE 5MG TAB As Ordered ONE
[2019-05-29] MEDS ORDERED: CIPR-249 PO (21:58)
[2019-05-29] MEDS ORDERED: FLAG500T PO (21:58)
[2019-05-29] MEDS ORDERED: metroNIDAZOLE (FLAGYL) 500 MG TAB PO ONE (22:00)
[2019-05-29] MEDS ORDERED: CIPROFLOXACIN 500 MG TAB PO ONE (22:00)
[2019-05-29 22:04] VITALS: BP 109/62
== END 2019-05-29 22:25 | disposition home or self-care (01) ==
LOC: M ED 18:18
DX: N39.0 Urinary tract infection, site not specified (principal); N77.1 Vaginitis, vulvitis and vulvovaginitis in diseases classified elsewhere; B96.89 Other specified bacterial agents as the cause of diseases classified elsewhere; I10 Essential (primary) hypertension; F43.10 Post-traumatic stress disorder, unspecified; Z88.1 Allergy status to other antibiotic agents; Z88.8 Allergy status to other drugs, medicaments and biological substances; Z88.4 Allergy status to anesthetic agent

== ENCOUNTER → 2019-07-15 | Outpatient (REF) | payer MEDICAID, MEDICARE, OTHER ==
[~2019-07-15] MED LIST changes: +FLAG500T PO; -GLIM2TAB2 PO; +GLIM2TAB4 PO
[2019-07-15 20:26] LABS: APPEARANCE, URINE CLEAR (CLEAR); BACTERIA, URINE AUTO NEGATIVE (NEGATIVE); BILIRUBIN, URINE AUTO NEGATIVE (NEGATIVE); BLOOD, URINE BLOOD NEGATIVE (NEGATIVE); COLOR, URINE YELLOW (YELLOW); GLUCOSE, URINE (UA) AUTO 3+ mg/dL (NEGATIVE); KETONE, URINE AUTO NEGATIVE (NEGATIVE); LEUKOCYTE ESTERASE, URINE AUTO NEGATIVE (NEGATIVE); NITRITE, URINE AUTO NEGATIVE (NEGATIVE); PROTEIN, URINE AUTO NEGATIVE (NEGATIVE); RBC, URINE AUTO 0 /HPF (0-3); SQUAMOUS EPITHELIAL CELL UR AU 2 /HPF (0-6); UROBILINOGEN, URINE AUTO 0.2 mg/dL (0.0-2.0); WBC, URINE AUTO 1 /HPF (0-3)
[2019-07-15 20:59] LABS: AMPHETAMINES URINE REFLEX NEGATIVE (NEGATIVE); BARBITURATES URINE REFLEX NEGATIVE (NEGATIVE); BENZODIAZEPINES URINE REFLEX NEGATIVE (NEGATIVE); COCAINE METABOLITE URINE REFLE NEGATIVE (NEGATIVE); METHADONE URINE REFLEX NEGATIVE (NEGATIVE); OPIATES URINE REFLEX NEGATIVE (NEGATIVE); PHENCYCLIDINE URINE REFLEX NEGATIVE (NEGATIVE)
[2019-07-15 21:28] LABS: CANNABINOIDS URINE REFLEX PENDING CONFIRMATION (NEGATIVE)
[2019-07-21 14:09] LABS: Cannabinoid Positive (.); GC Carboxy THC 16 ng/mL (Cutoff=10)
== END ==
LOC: M LAB REF 20:04
PROVIDERS: ATTEND Nurse Practitioner Family
DX: Z13.9 Encounter for screening, unspecified (principal); R30.0 Dysuria; F33.1 Major depressive disorder, recurrent, moderate
CPT/HCPCS: 80307; 81001; 87086; G0480

== ENCOUNTER → 2019-07-24 | Outpatient (CLI) | payer MEDICAID, MEDICARE, OTHER ==
[2019-07-24 10:02] LABS: APPEARANCE, URINE CLEAR (CLEAR); BACTERIA, URINE AUTO NEGATIVE (NEGATIVE); BILIRUBIN, URINE AUTO NEGATIVE (NEGATIVE); BLOOD, URINE BLOOD NEGATIVE (NEGATIVE); COLOR, URINE YELLOW (YELLOW); GLUCOSE, URINE (UA) AUTO 3+ mg/dL (NEGATIVE); KETONE, URINE AUTO NEGATIVE (NEGATIVE); LEUKOCYTE ESTERASE, URINE AUTO NEGATIVE (NEGATIVE); MUCUS, URINE SMALL (NEGATIVE); NITRITE, URINE AUTO NEGATIVE (NEGATIVE); PROTEIN, URINE AUTO NEGATIVE (NEGATIVE); RBC, URINE AUTO 1 /HPF (0-3); SPECIFIC GRAVITY URINE AUTO 1.027 (1.002-1.035); SQUAMOUS EPITHELIAL CELL UR AU 2 /HPF (0-6); UROBILINOGEN, URINE AUTO 0.2 mg/dL (0.0-2.0); WBC, URINE AUTO 1 /HPF (0-3)
[2019-07-24 10:28] LABS: ALBUMIN 3.3 GM/DL (3.2-5.2); ALT/SGPT 77 U/L (12-78); BILIRUBIN,TOTAL 0.5 MG/DL (0.2-1.0); BLOOD UREA NITROGEN 18 MG/DL (7-18); CARBON DIOXIDE LEVEL 28 MEQ/L (21-32); CHLORIDE LEVEL 100 MEQ/L (98-107); CHOLESTEROL LEVEL 225 MG/DL (<200); CHOLESTEROL RISK RATIO 7.031 (<5); CREATININE FOR GFR 0.82 MG/DL (0.55-1.30); GLOMERULAR FILTRATION RATE > 60.0 (>51); GLUCOSE, FASTING 308 MG/DL (70-100); HDL CHOLESTEROL 32 MG/DL (>40); NON-HDL-C 193 MG/DL; POTASSIUM SERUM 4.3 MEQ/L (3.5-5.1); SODIUM LEVEL 135 MEQ/L (136-145); TOTAL PROTEIN 7.3 GM/DL (6.4-8.2); TRIGLYCERIDES LEVEL 404 MG/DL (<150)
== END ==
LOC: M LAB 08:38
PROVIDERS: ATTEND Nurse Practitioner Family
DX: R30.0 Dysuria (principal); Z79.899 Other long term (current) drug therapy

== ENCOUNTER 2019-08-29 17:24 | Emergency (ER) | payer MEDICARE ==
[~2019-08-29] VITALS: Ht 170.2 cm; Wt 159.6 kg
[2019-08-29 18:00] LABS: VENOUS BASE EXCESS -1.2 (-2.0-2.0); VENOUS HCO3 24.1 MEQ/L (23.0-27.0); VENOUS O2 SATURATION 88.5 % (60.0-80.0); VENOUS PARTIAL PRESSURE CO2 42.4 mmHg (38.0-50.0); VENOUS PARTIAL PRESSURE O2 53.3 mmHg (30.0-50.0); VENOUS PH 7.372 UNITS (7.330-7.430); VENOUS STANDARD HCO3 23.2 MEQ/L; VENOUS TOTAL CO2 25.4 MEQ/L (24.0-28.0)
[2019-08-29] MEDS ORDERED: ALBUTEROL 90 MCG/ACT 8GM HFA INHALER INH ONE (18:00)
[2019-08-29] MEDS ORDERED: NS 1,000 ML IV ONE ×2 (18:00→18:15)
[2019-08-29 18:03] LABS: BASO # 0.1 10^3/uL (0.0-0.2); BASO % 0.7 % (0.0-1.0); EOS # 0.1 10^3/uL (0.0-0.5); EOS % 1.5 % (0.0-3.0); HEMATOCRIT 45.1 % (36.0-47.0); HEMOGLOBIN 15.1 g/dl (12.0-15.5); LYMPH # 1.9 10^3/uL (1.5-5.0); MEAN CORPUSCULAR HEMOGLOBIN 32.1 pg (27.0-33.0); MEAN CORPUSCULAR HGB CONC 33.5 g/dl (32.0-36.5); MONO # 0.3 10^3/uL (0.0-0.8); MONO % 4.6 % (0.0-5.0); NEUTROPHILS % 66.5 % (36.0-66.0); PLATELET COUNT, AUTOMATED 267 10^3/uL (150-450); WHITE BLOOD COUNT 7.5 10^3/uL (4.0-10.0)
[2019-08-29] MEDS ORDERED: HumuLIN R (REGULAR) INSULIN (NovoLIN R) **100U/ML** PER UNIT IV ONE (18:15)
[2019-08-29 18:43] LABS: BLOOD UREA NITROGEN 18 MG/DL (7-18); CHLORIDE LEVEL 98 MEQ/L (98-107); CREATININE FOR GFR 0.96 MG/DL (0.55-1.30); GLOMERULAR FILTRATION RATE > 60.0 (>51); GLUCOSE, FASTING 471 MG/DL (70-100); SODIUM LEVEL 132 MEQ/L (136-145)
[2019-08-29 18:44] LABS: ALBUMIN 3.2 GM/DL (3.2-5.2); ALT/SGPT 77 U/L (12-78); BILIRUBIN,DIRECT < 0.1 MG/DL (0.0-0.2); BILIRUBIN,TOTAL 0.3 MG/DL (0.2-1.0); CALCIUM LEVEL 9.3 MG/DL (8.5-10.1); CARBON DIOXIDE LEVEL 27 MEQ/L (21-32); CK-MB VALUE MASS < 1.0 NG/ML (<3.6); CPK CREATINE PHOSPHOKINASE 52 U/L (26-192); MB/CK RELATIVE INDEX 1.92 (< OR =4); NT-PRO BNP 32 PG/ML (<125); TROPONIN I < 0.02 NG/ML (< 0.10)
--- NOTE | 2019-08-29 19:13 | REP ---
HISTORY: Cough and dyspnea. COMPARISON: 09/25/2018 There is cardiomegaly, status quo. There is chronic central pulmonary venous engorgement, status quo. There is a diffuse increase in the interstitial markings throughout the lung cope with perivascular haziness. There are no jodi patchy opacities. The pleural angles are sharp. There is no change in the osseous structures. IMPRESSION: Cardiomegaly and possible mild diffuse interstitial edema versus chronic change, correlate clinically. Electronically Signed by Goyo Brooks DO 08/29/2019 07:32 P
--- NOTE | 2019-08-29 19:47 | ECGEPIP ---
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
[2019-08-29] MEDS ORDERED: POTASSIUM CHLORIDE 10 MEQ SR TABLET PO ONE (20:30)
[2019-08-29] MEDS ORDERED: CYCLOBENZAPRINE 10 MG TAB PO ONE (20:30)
[2019-08-29 21:54] VITALS: BP 119/60
[2019-08-29] MEDS ORDERED: IBUPROFEN 800 MG TAB PO ONE (22:30)
== END 2019-08-29 22:27 | disposition home or self-care (01) ==
LOC: M ED 17:24
DX: E11.65 Type 2 diabetes mellitus with hyperglycemia (principal); I10 Essential (primary) hypertension; E78.49 Other hyperlipidemia; E03.9 Hypothyroidism, unspecified; J44.9 Chronic obstructive pulmonary disease, unspecified; F32.9 Major depressive disorder, single episode, unspecified; F17.218 Nicotine dependence, cigarettes, with other nicotine-induced disorders; Z88.1 Allergy status to other antibiotic agents; Z88.8 Allergy status to other drugs, medicaments and biological substances; Z88.4 Allergy status to anesthetic agent

== ENCOUNTER → 2019-12-09 | Outpatient (REF) | payer MEDICARE, MEDICAID ==
[~2019-12-09] MED LIST changes: +CYCL-707 PO; -CYCL10TA PO
[2019-12-09 15:08] LABS: BASO % 0.5 % (0.0-1.0); EOS # 0.2 10^3/uL (0.0-0.5); EOS % 2.5 % (0.0-3.0); HEMATOCRIT 46.6 % (36.0-47.0); HEMOGLOBIN 15.3 g/dl (12.0-15.5); LYMPH # 1.7 10^3/uL (1.5-5.0); LYMPH % 22.5 % (24.0-44.0); MEAN CORPUSCULAR HEMOGLOBIN 32.1 pg (27.0-33.0); MEAN CORPUSCULAR HGB CONC 32.8 g/dl (32.0-36.5); MEAN CORPUSCULAR VOLUME 97.7 fl (80.0-96.0); MONO # 0.3 10^3/uL (0.0-0.8); MONO % 4.1 % (0.0-5.0); NEUTROPHILS # 5.2 10^3/uL (1.5-8.5); NEUTROPHILS % 69.9 % (36.0-66.0); PLATELET COUNT, AUTOMATED 296 10^3/uL (150-450); RED BLOOD COUNT 4.77 10^6/uL (4.00-5.40); WHITE BLOOD COUNT 7.5 10^3/uL (4.0-10.0)
[2019-12-09 15:18] LABS: ALBUMIN 3.3 GM/DL (3.2-5.2); ALT/SGPT 81 U/L (12-78); BILIRUBIN,TOTAL 0.3 MG/DL (0.2-1.0); BLOOD UREA NITROGEN 12 MG/DL (7-18); CALCIUM LEVEL 9.5 MG/DL (8.5-10.1); CARBON DIOXIDE LEVEL 28 MEQ/L (21-32); CHLORIDE LEVEL 102 MEQ/L (98-107); CHOLESTEROL LEVEL 215 MG/DL (<200); CHOLESTEROL RISK RATIO 6.323 (<5); CREATININE FOR GFR 0.87 MG/DL (0.55-1.30); FREE T4 0.89 NG/DL (0.76-1.46); GLOMERULAR FILTRATION RATE > 60.0 (>51); GLUCOSE, FASTING 281 MG/DL (70-100); HDL CHOLESTEROL 34 MG/DL (>40); LDL CHOLESTEROL 115 MG/DL (<100); NON-HDL-C 181 MG/DL; POTASSIUM SERUM 4.5 MEQ/L (3.5-5.1); SODIUM LEVEL 138 MEQ/L (136-145); TOTAL PROTEIN 7.8 GM/DL (6.4-8.2); TRIGLYCERIDES LEVEL 328 MG/DL (<150)
[2019-12-09 15:21] LABS: TOTAL 25(OH) VITAMIN D 16.3 NG/ML (30.0-100.0)
[2019-12-09 15:33] LABS: HEMOGLOBIN A1c 9.2 %
== END ==
LOC: M LAB REF 13:23
PROVIDERS: ATTEND Nurse Practitioner Family
DX: E11.69 Type 2 diabetes mellitus with other specified complication (principal); R06.00 Dyspnea, unspecified; E66.01 Morbid (severe) obesity due to excess calories; Z72.0 Tobacco use; E78.5 Hyperlipidemia, unspecified; E03.9 Hypothyroidism, unspecified; J44.9 Chronic obstructive pulmonary disease, unspecified

== ENCOUNTER → 2020-03-25 | Outpatient (CLI) | payer MEDICARE, MEDICAID | LOC: M LABSMTC 12:13 | PROVIDERS: ATTEND Family Medicine | DX: Z20.828 Contact with and (suspected) exposure to other viral communicable diseases (principal) | CPT/HCPCS: C9803; U0003 ==

== ENCOUNTER 2020-06-04 18:20 | Emergency (ER) | payer MEDICARE, MEDICAID ==
[~2020-06-04] VITALS: Ht 170.2 cm; Wt 167.0 kg
[~2020-06-04 18:20] MED LIST changes: -GLIP5TAB20; +GLIP5TAB20 PO
[2020-06-04] MEDS ORDERED: NS 1,000 ML IV ONE (19:30)
[2020-06-04] MEDS ORDERED: ONDANSETRON 4MG/2ML VIAL IV ONE (19:30)
[2020-06-04] MEDS ORDERED: MORPHINE 4 MG/ML 1ML VIAL/SYRINGE (J2270) IV PRN (19:30)
[2020-06-04 20:18] LABS: VENOUS BASE EXCESS -0.8 (-2.0-2.0); VENOUS HCO3 24.9 MEQ/L (23.0-27.0); VENOUS O2 SATURATION 73.9 % (60.0-80.0); VENOUS PARTIAL PRESSURE CO2 44.6 mmHg (38.0-50.0); VENOUS PARTIAL PRESSURE O2 39.8 mmHg (30.0-50.0); VENOUS PH 7.365 UNITS (7.330-7.430); VENOUS STANDARD HCO3 23.2 MEQ/L; VENOUS TOTAL CO2 26.3 MEQ/L (24.0-28.0)
[2020-06-04 20:22] LABS: BASO % 0.4 % (0.0-1.0); EOS # 0.1 10^3/uL (0.0-0.5); EOS % 0.9 % (0.0-3.0); HEMOGLOBIN 16.4 g/dl (12.0-15.5); LYMPH % 23.4 % (24.0-44.0); MEAN CORPUSCULAR HEMOGLOBIN 32.4 pg (27.0-33.0); MEAN CORPUSCULAR HGB CONC 34.2 g/dl (32.0-36.5); MEAN CORPUSCULAR VOLUME 94.9 fl (80.0-96.0); MONO # 0.5 10^3/uL (0.0-0.8); MONO % 5.4 % (0.0-5.0); NEUTROPHILS # 5.9 10^3/uL (1.5-8.5); NEUTROPHILS % 69.4 % (36.0-66.0); PLATELET COUNT, AUTOMATED 318 10^3/uL (150-450); RED BLOOD COUNT 5.06 10^6/uL (4.00-5.40); WHITE BLOOD COUNT 8.6 10^3/uL (4.0-10.0)
[2020-06-04 20:45] LABS: OSMOLALITY SERUM 296 MOSM/KG (275-295)
[2020-06-04 20:50] LABS: ACETONE/KETONE 1.14 MG/DL (<2.81); ALBUMIN 3.5 GM/DL (3.2-5.2); ALT/SGPT 55 U/L (12-78); BILIRUBIN,DIRECT 0.1 MG/DL (0.0-0.2); BILIRUBIN,TOTAL 0.4 MG/DL (0.2-1.0); BLOOD UREA NITROGEN 16 MG/DL (7-18); CALCIUM LEVEL 10.1 MG/DL (8.5-10.1); CARBON DIOXIDE LEVEL 26 MEQ/L (21-32); CHLORIDE LEVEL 100 MEQ/L (98-107); CK-MB VALUE MASS 1.1 NG/ML (<3.6); CPK CREATINE PHOSPHOKINASE 39 U/L (26-192); GLOMERULAR FILTRATION RATE > 60.0 (>51); GLUCOSE, FASTING 294 MG/DL (70-100); LIPASE 145 U/L (73-393); MB/CK RELATIVE INDEX 2.82 (< OR =4); SODIUM LEVEL 134 MEQ/L (136-145); TOTAL PROTEIN 7.9 GM/DL (6.4-8.2); TROPONIN I < 0.02 NG/ML (< 0.10)
[2020-06-04 21:26] LABS: RSV AMPLIFICATION NEGATIVE (NEGATIVE)
[2020-06-04] MEDS: GASTROGRAFIN SOLUTION 30ML PO SCH ×2 (22:13→22:33)
[2020-06-04] MEDS ORDERED: ISOVUE-370 76% 100ML VIAL As Ordered ONE (23:06)
[2020-06-04] MEDS ORDERED: METOCLOPRAMIDE INJ 10MG/2ML VIAL (J2765 PER 1) IV ONE (23:30)
--- NOTE | 2020-06-05 00:11 | REPVR ---
PROCEDURE INFORMATION: Exam: CT Abdomen And Pelvis With Contrast Exam date and time: 06/04/2020 9:33 PM Age: 50 years old Clinical indication: Abdominal pain; Generalized; Additional info: Generalized abd pain TECHNIQUE: Imaging protocol: Computed tomography of the abdomen and pelvis with intravenous contrast. Radiation optimization: All CT scans at this facility use at least one of these dose optimization techniques: automated exposure control; mA and/or kV adjustment per patient size (includes targeted exams where dose is matched to clinical indication); or iterative reconstruction. Contrast material: ISO; Contrast volume: 100 ml; Contrast route: INTRAVENOUS (IV); COMPARISON: CT ABD/PEL W/IV CONTRAST ONLY 2019-02-13 13:58 FINDINGS: Limitations: Limited by patient's body habitus. Liver: Enlarged low attenuating liver, evidence of hepatic steatosis. Slightly nodular contour raises a question of cirrhosis. Gallbladder and bile ducts: Gallbladder distension. Pancreas: Normal. No ductal dilation. Spleen: Splenomegaly. Adrenal glands: Normal. No mass. Kidneys and ureters: Normal. No hydronephrosis. Stomach and bowel: Mild colonic diverticulosis without evidence for acute diverticulitis. Appendix: No evidence of appendicitis. Intraperitoneal space: Unremarkable. No free air. No significant fluid collection. Vasculature: Unremarkable. No abdominal aortic aneurysm. Lymph nodes: Nonspecific upper abdominal adenopathy with multiple prominent periaortic and mesenteric access lymph nodes, largest measures 1.6 cm. Urinary bladder: Unremarkable as visualized. Reproductive: Unremarkable as visualized. Bones/joints: Moderate to severe lower lumbar spinal stenosis. Soft tissues: Small fat protruding umbilical hernia. IMPRESSION: 1. Nonspecific upper abdominal adenopathy with multiple prominent periaortic and mesenteric access lymph nodes, largest measures 1.6 cm. 2. Enlarged low attenuating liver, evidence of hepatic steatosis. Slightly nodular contour raises a question of cirrhosis. 3. Gallbladder distension. 4. Small fat protruding umbilical hernia. 5. Mild colonic diverticulosis without evidence for acute diverticulitis. 6. Moderate to severe lower lumbar spinal stenosis. 7. Splenomegaly. Electronically signed by: Remy Shin On 06/05/2020 00:10:42 AM
[2020-06-05] MEDS ORDERED: NS 1,000 ML IV ONE (01:00)
[2020-06-05] MEDS ORDERED: KETOROLAC 30 MG/ML 1ML VIAL IV ONE (01:00)
[2020-06-05 01:30] VITALS: BP 133/63
[2020-06-05] MEDS ORDERED: ONDA4TAB6 PO ×2 (02:06→22:26)
[2020-06-05] MEDS ORDERED: REGL10TA6 PO ×2 (02:06→22:26)
[2020-06-05] MEDS ORDERED: MIRA3350 PO (22:30)
--- NOTE | 2020-06-06 12:18 | ECGEPIP ---
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
--- NOTE | 2020-06-08 19:17 | ED PDOC ---
Post-Departure Follow-Up ct abd/p faxed to david sanchez for fu Rosalia Bingham MD Jun 08, 2020 19:17
== END 2020-06-05 02:35 | disposition home or self-care (01) ==
LOC: M ED 18:20
DX: K52.9 Noninfective gastroenteritis and colitis, unspecified (principal); E11.9 Type 2 diabetes mellitus without complications; Z79.4 Long term (current) use of insulin; I25.10 Atherosclerotic heart disease of native coronary artery without angina pectoris; Z88.1 Allergy status to other antibiotic agents; Z88.8 Allergy status to other drugs, medicaments and biological substances; F12.20 Cannabis dependence, uncomplicated; Z87.891 Personal history of nicotine dependence
CPT/HCPCS: 74177; 80048; 80076; 81001; 82010; 82550; 82553; 82803; 83605; 83690; 83930; 84484; 85025; 87631; 93005; 93041; 96361; 96374; 96375; 99285; J1885; J2270; J2405; J2765; Q9963; Q9967

== ENCOUNTER 2020-06-05 20:09 | Emergency (ER) | payer MEDICARE, MEDICAID ==
[~2020-06-05] VITALS: Ht 170.2 cm; Wt 158.2 kg
[~2020-06-05 20:09] MED LIST changes: +ONDA4TAB6 PO; +REGL10TA6 PO
[2020-06-05] MEDS ORDERED: NS 1,000 ML IV ONE (20:45)
[2020-06-05] MEDS ORDERED: METOCLOPRAMIDE INJ 10MG/2ML VIAL (J2765 PER 1) IV ONE (20:45)
[2020-06-05 21:25] LABS: VENOUS BASE EXCESS -1.6 (-2.0-2.0); VENOUS HCO3 22.1 MEQ/L (23.0-27.0); VENOUS O2 SATURATION 85.3 % (60.0-80.0); VENOUS PARTIAL PRESSURE CO2 34.6 mmHg (38.0-50.0); VENOUS PARTIAL PRESSURE O2 47.4 mmHg (30.0-50.0); VENOUS PH 7.423 UNITS (7.330-7.430); VENOUS STANDARD HCO3 22.9 MEQ/L; VENOUS TOTAL CO2 23.2 MEQ/L (24.0-28.0)
[2020-06-05 21:30] LABS: BASO % 0.4 % (0.0-1.0); EOS # 0.1 10^3/uL (0.0-0.5); EOS % 1.1 % (0.0-3.0); HEMATOCRIT 45.2 % (36.0-47.0); HEMOGLOBIN 14.9 g/dl (12.0-15.5); LYMPH # 1.4 10^3/uL (1.5-5.0); LYMPH % 16.9 % (24.0-44.0); MEAN CORPUSCULAR HEMOGLOBIN 31.3 pg (27.0-33.0); MONO # 0.4 10^3/uL (0.0-0.8); MONO % 4.6 % (0.0-5.0); NEUTROPHILS # 6.5 10^3/uL (1.5-8.5); NEUTROPHILS % 76.6 % (36.0-66.0); PLATELET COUNT, AUTOMATED 282 10^3/uL (150-450); RED BLOOD COUNT 4.76 10^6/uL (4.00-5.40); WHITE BLOOD COUNT 8.5 10^3/uL (4.0-10.0)
[2020-06-05 21:45] LABS: HEMOGLOBIN A1c 10.2 %
--- NOTE | 2020-06-05 21:52 | REPVR ---
PROCEDURE INFORMATION: Exam: XR Abdomen, 1 View Exam date and time: 06/05/2020 8:42 PM Age: 50 years old Clinical indication: Other: Dka TECHNIQUE: Imaging protocol: XR of the abdomen. Views: Frontal supine view of the abdomen. 1 View. COMPARISON: CT ABD/PEL W/IV ORAL CONTRAS 06/04/2020 11:09 PM FINDINGS: Gastrointestinal tract: Normal. No bowel dilation. There is intraluminal contrast in the colon. Bones/joints: Skeletal degenerative changes are noted. IMPRESSION: No acute findings. Electronically signed by: Pedro Castellanos On 06/05/2020 21:52:23 PM
[2020-06-05 21:56] LABS: OSMOLALITY SERUM 298 MOSM/KG (275-295)
[2020-06-05 21:57] LABS: ACETONE/KETONE 2.41 MG/DL (<2.81); ALBUMIN 3.6 GM/DL (3.2-5.2); ALT/SGPT 55 U/L (12-78); BILIRUBIN,DIRECT 0.1 MG/DL (0.0-0.2); BILIRUBIN,TOTAL 0.5 MG/DL (0.2-1.0); CK-MB VALUE MASS 1.5 NG/ML (<3.6); CPK CREATINE PHOSPHOKINASE 57 U/L (26-192); LIPASE 90 U/L (73-393); MB/CK RELATIVE INDEX 2.63 (< OR =4); PHOSPHORUS LEVEL 2.7 MG/DL (2.5-4.9); TOTAL PROTEIN 7.5 GM/DL (6.4-8.2); TROPONIN I < 0.02 NG/ML (< 0.10)
[2020-06-05 22:15] LABS: BLOOD UREA NITROGEN 19 MG/DL (7-18); CALCIUM LEVEL 9.9 MG/DL (8.5-10.1); CARBON DIOXIDE LEVEL 24 MEQ/L (21-32); CHLORIDE LEVEL 101 MEQ/L (98-107); CREATININE FOR GFR 0.98 MG/DL (0.55-1.30); GLOMERULAR FILTRATION RATE > 60.0 (>51); GLUCOSE, FASTING 338 MG/DL (70-100); POTASSIUM SERUM 4.2 MEQ/L (3.5-5.1); SODIUM LEVEL 135 MEQ/L (136-145)
[2020-06-05] MEDS ORDERED: REGL10TA6 PO (22:26)
[2020-06-05] MEDS ORDERED: ONDA4TAB6 PO (22:26)
[2020-06-05] MEDS ORDERED: MIRA3350 PO (22:30)
[2020-06-05 22:46] VITALS: BP 152/85
--- NOTE | 2020-06-06 12:24 | ECGEPIP ---
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
== END 2020-06-05 22:47 | disposition home or self-care (01) ==
LOC: M ED 20:09
DX: K31.84 Gastroparesis (principal); E11.9 Type 2 diabetes mellitus without complications; I10 Essential (primary) hypertension; K27.9 Peptic ulcer, site unspecified, unspecified as acute or chronic, without hemorrhage or perforation; K21.9 Gastro-esophageal reflux disease without esophagitis; Z79.899 Other long term (current) drug therapy; Z79.4 Long term (current) use of insulin; Z88.1 Allergy status to other antibiotic agents; Z88.6 Allergy status to analgesic agent; Z88.8 Allergy status to other drugs, medicaments and biological substances; F17.210 Nicotine dependence, cigarettes, uncomplicated
CPT/HCPCS: 74018; 80048; 80076; 81001; 82010; 82550; 82553; 82803; 83036; 83690; 83735; 83930; 84100; 84484; 85025; 93005; 93041; 96361; 96374; 99284; J2765

== ENCOUNTER 2020-06-19 05:52 | Emergency (ER) | payer MEDICARE, MEDICAID ==
[~2020-06-19] VITALS: Ht 170.2 cm; Wt 152.7 kg
[~2020-06-19 05:52] MED LIST changes: +MIRA3350 PO
[2020-06-19] MEDS ORDERED: NS 1,000 ML IV ONE (06:15)
[2020-06-19 06:26] LABS: BASO % 0.5 % (0.0-1.0); EOS # 0.1 10^3/uL (0.0-0.5); EOS % 1.3 % (0.0-3.0); HEMATOCRIT 44.1 % (36.0-47.0); HEMOGLOBIN 14.2 g/dl (12.0-15.5); LYMPH # 1.5 10^3/uL (1.5-5.0); LYMPH % 18.4 % (24.0-44.0); MEAN CORPUSCULAR HEMOGLOBIN 31.3 pg (27.0-33.0); MEAN CORPUSCULAR HGB CONC 32.2 g/dl (32.0-36.5); MEAN CORPUSCULAR VOLUME 97.1 fl (80.0-96.0); MONO # 0.4 10^3/uL (0.0-0.8); MONO % 4.5 % (0.0-5.0); NEUTROPHILS % 74.9 % (36.0-66.0); PLATELET COUNT, AUTOMATED 253 10^3/uL (150-450); RED BLOOD COUNT 4.54 10^6/uL (4.00-5.40)
[2020-06-19] MEDS ORDERED: KETOROLAC 30 MG/ML 1ML VIAL IV ONE (06:45)
[2020-06-19 06:55] LABS: ALBUMIN 3.2 GM/DL (3.2-5.2); ALT/SGPT 38 U/L (12-78); BILIRUBIN,DIRECT 0.1 MG/DL (0.0-0.2); BILIRUBIN,TOTAL 0.5 MG/DL (0.2-1.0); CK-MB VALUE MASS < 1.0 NG/ML (<3.6); CPK CREATINE PHOSPHOKINASE 34 U/L (26-192); LIPASE 106 U/L (73-393); MB/CK RELATIVE INDEX 2.94 (< OR =4); TOTAL PROTEIN 7.3 GM/DL (6.4-8.2); TROPONIN I < 0.02 NG/ML (< 0.10)
[2020-06-19 07:20] LABS: BLOOD UREA NITROGEN 13 MG/DL (7-18); CALCIUM LEVEL 9.1 MG/DL (8.5-10.1); CARBON DIOXIDE LEVEL 24 MEQ/L (21-32); CHLORIDE LEVEL 104 MEQ/L (98-107); CREATININE FOR GFR 0.96 MG/DL (0.55-1.30); GLOMERULAR FILTRATION RATE > 60.0 (>51); GLUCOSE, FASTING 205 MG/DL (70-100); POTASSIUM SERUM 3.8 MEQ/L (3.5-5.1); SODIUM LEVEL 136 MEQ/L (136-145)
[2020-06-19] MEDS ORDERED: HYDROMORPHONE HCL 0.5 MG/ 0.5 ML SYRINGE (J1170 PER 1) IV ONE (08:15)
[2020-06-19] MEDS ORDERED: ONDANSETRON 4MG/2ML VIAL IV ONE (08:15)
--- NOTE | 2020-06-19 08:33 | REP ---
INDICATION: upper abd pain, distension seen on CT 06/04 COMPARISON: Ultrasound dated 06/15/2018; CT dated 06/04/2020 TECHNIQUE: Real time sigala scale ultrasound examination using curved array transducer. FINDINGS: Liver is enlarged and demonstrates mildly echogenic coarsened echotexture suggesting hepatomegaly and hepatosteatosis. No focal hepatic lesions are identified. The pancreas is normal, but peripancreatic/maura hepatis lymph nodes are identified measuring up to 23 x 10 x 20 mm. The gallbladder is distended and measures 13.5 cm in length and 4.5 cm diameter without obvious gallstones, wall thickening, or pericholecystic fluid. No biliary ductal dilatation is appreciated and the common bile duct measures 5.4 mm diameter. Right kidney is normal in reniform shape without hydronephrosis and measures 11.1 x 5.4 x 5.1 cm. No ascites in the visualized right upper quadrant. IMPRESSION: 1. Moderate hydropic appearance to the gallbladder without gallstones or further obvious biliary abnormality. 2. Hepatomegaly and hepatosteatosis with prominent maura hepatis/peripancreatic lymph nodes. Findings are nonspecific and should be correlated with possible underlying hepatocellular disease. 3. Normal appearance of the pancreas and right kidney. <Electronically signed by Wero Kathleen > 06/19/20 [id number]
--- NOTE | 2020-06-19 08:34 | REP ---
INDICATION: constipation x 4 weeks, n, v, severe pain umbil LLQ COMPARISON: None. TECHNIQUE: Supine views of the abdomen and pelvis. FINDINGS: Bowel gas pattern is nonspecific and without obstruction or perforation. No organomegaly. No abnormal calcifications. Skeletal structures intact. IMPRESSION: Nonspecific bowel gas pattern. No abnormal calcifications. <Electronically signed by Wero Kathleen > 06/19/20 [id number]
--- NOTE | 2020-06-19 09:29 | ECGEPIP ---
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
[2020-06-19 09:54] VITALS: BP 136/77
--- NOTE | 2020-06-19 12:09 | ED PDOC ---
Post-Departure Follow-Up radiology report faxed to Pearl Hayward FNP Delaney-Rowland, Sarah MD Jun 19, 2020 12:09
== END 2020-06-19 09:56 | disposition home or self-care (01) ==
LOC: M ED 05:52
DX: R10.9 Unspecified abdominal pain (principal); R11.2 Nausea with vomiting, unspecified; G89.29 Other chronic pain; M54.5 Low back pain; R16.0 Hepatomegaly, not elsewhere classified; K76.0 Fatty (change of) liver, not elsewhere classified; R59.9 Enlarged lymph nodes, unspecified; E11.9 Type 2 diabetes mellitus without complications; E78.5 Hyperlipidemia, unspecified; E03.9 Hypothyroidism, unspecified; F43.10 Post-traumatic stress disorder, unspecified; F41.9 Anxiety disorder, unspecified; F12.10 Cannabis abuse, uncomplicated; F17.200 Nicotine dependence, unspecified, uncomplicated; Z88.8 Allergy status to other drugs, medicaments and biological substances; Z88.1 Allergy status to other antibiotic agents; Z79.899 Other long term (current) drug therapy; Z79.4 Long term (current) use of insulin
CPT/HCPCS: 74018; 76705; 80048; 80076; 81001; 82550; 82553; 83605; 83690; 84484; 85025; 93005; 93041; 96361; 96374; 96375; 99285; J1170; J1885; J2405

== ENCOUNTER 2020-09-22 21:23 | Emergency (ER) | payer MEDICARE, MEDICAID ==
[~2020-09-22] VITALS: Ht 170.2 cm; Wt 141.2 kg
[~2020-09-22 21:23] MED LIST changes: +GABA-282 PO; -GABA-843 PO
[2020-09-22] MEDS ORDERED: TRUL10IN (21:40)
[2020-09-22] MEDS ORDERED: GLIP10TA18 (21:40)
[2020-09-22] MEDS ORDERED: FLUO20CA22 (21:40)
[2020-09-22] MEDS ORDERED: ALBU8.5H (21:40)
[2020-09-23] MEDS ORDERED: MORPHINE 4 MG/ML 1ML VIAL/SYRINGE (J2270) IV ONE (01:10)
[2020-09-23] MEDS ORDERED: ONDANSETRON 4MG/2ML VIAL IV ONE (01:10)
[2020-09-23] MEDS ORDERED: AMPICILLIN SOD/SULBACTAM SOD 3 GM in D5W MINI-BAG PLUS 100 ML IV ONE (01:10)
[2020-09-23] MEDS ORDERED: NS 1,000 ML IV ONE (01:10)
[2020-09-23 02:04] LABS: BASO # 0.1 10^3/uL (0.0-0.2); EOS # 0.1 10^3/uL (0.0-0.5); EOS % 1.8 % (0.0-3.0); HEMATOCRIT 42.2 % (36.0-47.0); HEMOGLOBIN 13.8 g/dl (12.0-15.5); LYMPH # 1.8 10^3/uL (1.5-5.0); LYMPH % 29.7 % (24.0-44.0); MEAN CORPUSCULAR HEMOGLOBIN 31.8 pg (27.0-33.0); MEAN CORPUSCULAR HGB CONC 32.7 g/dl (32.0-36.5); MEAN CORPUSCULAR VOLUME 97.2 fl (80.0-96.0); MONO # 0.5 10^3/uL (0.0-0.8); MONO % 7.8 % (2.0-8.0); NEUTROPHILS # 3.6 10^3/uL (1.5-8.5); NEUTROPHILS % 59.4 % (36.0-66.0); PLATELET COUNT, AUTOMATED 299 10^3/uL (150-450); RED BLOOD COUNT 4.34 10^6/uL (4.00-5.40); WHITE BLOOD COUNT 6.1 10^3/uL (4.0-10.0)
--- NOTE | 2020-09-23 02:14 | REPVR ---
PROCEDURE INFORMATION: Exam: XR Right Elbow Exam date and time: 09/23/2020 1:23 AM Age: 50 years old Clinical indication: Other: Fall; Additional info: Fall couple days ago, limited rom TECHNIQUE: Imaging protocol: XR Right elbow. Views: 3 or more views. COMPARISON: No relevant prior studies available. FINDINGS: Bones/joints: Joint spaces are normal. No fracture or malalignment. Soft tissues: Normal. IMPRESSION: No fracture or malalignment. Electronically signed by: Pedro Castellanos On 09/23/2020 02:14:30 AM
--- NOTE | 2020-09-23 02:16 | REPVR ---
PROCEDURE INFORMATION: Exam: XR Left Hand Exam date and time: 09/23/2020 1:23 AM Age: 50 years old Clinical indication: Other: Cat bite; Additional info: Cat bite, R/O osteomyelitis TECHNIQUE: Imaging protocol: XR Left hand. Views: 3 or more views. COMPARISON: CR Fingers 04/22/2014 11:27 PM FINDINGS: Bones/joints: Mild osteoarthritis in the DIP and MCP joints. No signs of an erosive or inflammatory arthritis. No destructive bone lesion. No fracture or malalignment. Soft tissues: Mild soft tissue swelling in the dorsum of the hand. IMPRESSION: 1. No signs of osteomyelitis. No fracture or malalignment. 2. Mild soft tissue swelling. 3. Osteoarthritis. Electronically signed by: Pedro Castellanos On 09/23/2020 02:17:03 AM
[2020-09-23] MEDS ORDERED: NORCO 5/325MG TABLET (BULK FOR ED) PO ONE (02:30)
[2020-09-23] MEDS ORDERED: AUGMENTIN 875 MG TAB PO ONE (02:30)
[2020-09-23] MEDS ORDERED: HYDR-3715 PO (02:34)
[2020-09-23] MEDS ORDERED: NAPR-885 PO (02:34)
[2020-09-23] MEDS ORDERED: AUGM875T28 PO (02:34)
[2020-09-23 02:37] LABS: ERYTHROCYTE SEDIMENTATION RATE 54 mm/hr (0-30)
[2020-09-23 03:09] VITALS: BP 135/78
== END 2020-09-23 03:05 | disposition home or self-care (01) ==
LOC: M ED 21:23
DX: S61.452A Open bite of left hand, initial encounter (principal); W55.01XA Bitten by cat, initial encounter; Y92.9 Unspecified place or not applicable; Y93.9 Activity, unspecified; Y99.9 Unspecified external cause status; S50.311A Abrasion of right elbow, initial encounter; W19.XXXA Unspecified fall, initial encounter; M19.042 Primary osteoarthritis, left hand; E11.9 Type 2 diabetes mellitus without complications; J44.9 Chronic obstructive pulmonary disease, unspecified; F17.200 Nicotine dependence, unspecified, uncomplicated; Z88.1 Allergy status to other antibiotic agents; Z88.8 Allergy status to other drugs, medicaments and biological substances; Z79.899 Other long term (current) drug therapy
CPT/HCPCS: 73080; 73130; 80047; 83605; 85025; 85652; 86140; 87040; 96365; 96375; 99284; J2270; J2405

== ENCOUNTER 2020-12-11 14:43 | Inpatient (IN) | payer OTHER, MEDICAID ==
[~2020-12-11] VITALS: Ht 170.2 cm; Wt 135.0 kg
[2020-12-11 02:18] VITALS: BP 160/92
[~2020-12-11 14:43] MED LIST changes: +ALBU8.5H INH; +AUGM875T28 PO; +FLUO20CA22 PO; +GLIP10TA18; -LEVO112T2; +LEVO112T2 PO; +NAPR-885 PO; +TRUL10IN SC
[2020-12-11] MEDS ORDERED: ONDANSETRON 4MG/2ML VIAL IV ONE (15:20)
[2020-12-11] MEDS ORDERED: NS 1,000 ML IV ONE ×2 (15:20→20:10)
[2020-12-11 15:34] LABS: BASO # 0.1 10^3/uL (0.0-0.2); BASO % 0.6 % (0.0-1.0); EOS # 0.1 10^3/uL (0.0-0.5); EOS % 0.9 % (0.0-3.0); HEMATOCRIT 49.6 % (36.0-47.0); HEMOGLOBIN 16.8 g/dl (12.0-15.5); LYMPH # 2.3 10^3/uL (1.5-5.0); LYMPH % 21.5 % (24.0-44.0); MEAN CORPUSCULAR HEMOGLOBIN 31.1 pg (27.0-33.0); MEAN CORPUSCULAR HGB CONC 33.9 g/dl (32.0-36.5); MEAN CORPUSCULAR VOLUME 91.7 fl (80.0-96.0); MONO # 0.4 10^3/uL (0.0-0.8); MONO % 4.1 % (2.0-8.0); NEUTROPHILS # 7.7 10^3/uL (1.5-8.5); NEUTROPHILS % 72.4 % (36.0-66.0); PLATELET COUNT, AUTOMATED 364 10^3/uL (150-450); RED BLOOD COUNT 5.41 10^6/uL (4.00-5.40); WHITE BLOOD COUNT 10.6 10^3/uL (4.0-10.0)
[2020-12-11 16:19] LABS: ACETONE/KETONE 2.51 MG/DL (<2.81); ALBUMIN 3.6 GM/DL (3.2-5.2); ALT/SGPT 37 U/L (12-78); BILIRUBIN,TOTAL 0.7 MG/DL (0.2-1.0); BLOOD UREA NITROGEN 16 MG/DL (7-18); CALCIUM LEVEL 9.7 MG/DL (8.5-10.1); CARBON DIOXIDE LEVEL 22 MEQ/L (21-32); CHLORIDE LEVEL 99 MEQ/L (98-107); CK-MB VALUE MASS < 1.0 NG/ML (<3.6); CPK CREATINE PHOSPHOKINASE 43 U/L (26-192); CREATININE FOR GFR 0.93 MG/DL (0.55-1.30); GLOMERULAR FILTRATION RATE > 60.0 (>51); GLUCOSE, FASTING 322 MG/DL (70-100); LIPASE 101 U/L (73-393); MB/CK RELATIVE INDEX 2.33 (< OR =4); POTASSIUM SERUM 4.4 MEQ/L (3.5-5.1); SODIUM LEVEL 131 MEQ/L (136-145); TOTAL PROTEIN 8.1 GM/DL (6.4-8.2); TROPONIN I < 0.02 NG/ML (< 0.10)
[2020-12-11] MEDS ORDERED: ISOVUE-370 76% 100ML VIAL As Ordered ONE (17:01)
--- NOTE | 2020-12-11 18:15 | REPVR ---
PROCEDURE INFORMATION: Exam: CT Abdomen And Pelvis With Contrast Exam date and time: 12/11/2020 5:11 PM Age: 50 years old Clinical indication: Abdominal pain; Additional info: Abdominal pain, vomiting TECHNIQUE: Imaging protocol: Computed tomography of the abdomen and pelvis with contrast. Radiation optimization: All CT scans at this facility use at least one of these dose optimization techniques: automated exposure control; mA and/or kV adjustment per patient size (includes targeted exams where dose is matched to clinical indication); or iterative reconstruction. Contrast material: ISOVUE 370; Contrast volume: 100 ml; Contrast route: INTRAVENOUS (IV); COMPARISON: CT ABD/PEL W/IV ORAL CONTRAS 06/04/2020 11:09 PM FINDINGS: Lungs: 4 mm noncalcified smooth bordered nodule left lower lobe likely postinflammatory. Finding is unchanged in comparison to prior study of 06/04/2020. No follow-up suggested according the Fleischner guidelines. Mediastinal space: A small hiatal hernia is present. Liver: There is a diffuse decrease in hepatic parenchymal density, consistent with steatosis. There is enlargement of the left and caudate lobes of the liver as well as a lobular surface contour of the liver. Findings may indicate the presence of cirrhosis in this patient with no reported history of chronic liver disease. No focal abnormality demonstrated. Gallbladder and bile ducts: Normal. No calcified stones. No ductal dilation. Pancreas: Normal. No ductal dilation. Spleen: Xndc-qo-jzbbxryt splenomegaly. Adrenal glands: Normal. No mass. Kidneys and ureters: Normal. No hydronephrosis. Stomach and bowel: Moderate diverticulosis is present in the distal colon. No diverticulitis. Appendix: No evidence of appendicitis. Intraperitoneal space: Unremarkable. No free air. No significant fluid collection. Vasculature: The aortoiliac vessels demonstrate mild atherosclerotic calcification. Lymph nodes: Multiple pericardiac lymph nodes measure up to 8 mm. Urinary bladder: Unremarkable as visualized. Reproductive: Unremarkable as visualized. Bones/joints: Severe central spinal stenosis L2-L3, L3-L4 and L4-L5. Bulging annulus L5-S1. Soft tissues: There is a small umbilical hernia. There is no evidence of incarceration. IMPRESSION: 1. There is a diffuse decrease in hepatic parenchymal density, consistent with steatosis. 2. Also noted is enlargement of the left and caudate lobes of the liver as well as a lobular surface contour of the liver. Findings may indicate the presence of cirrhosis in this patient with no reported history of chronic liver disease. No focal abnormality demonstrated. 3. Gbke-cp-hypanmtu splenomegaly. 4. Multiple pericardiac lymph nodes measure up to 8 mm. 5. A small hiatal hernia is present. 6. Moderate diverticulosis is present in the distal colon. No diverticulitis. Electronically signed by: Harinder Benitez On 12/11/2020 18:14:46 PM
[2020-12-11] MEDS ORDERED: METOCLOPRAMIDE INJ 10MG/2ML VIAL (J2765 PER 1) IV ONE (20:10)
[2020-12-11] MEDS ORDERED: GLIP10TA18 PO (20:39)
[2020-12-11] MEDS ORDERED: NAPR-885 PO (20:40)
[2020-12-11] MEDS ORDERED: med rec comment (20:42)
--- NOTE | 2020-12-11 20:54 | ECGEPIP ---
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
[2020-12-11] MEDS ORDERED: KETOROLAC 30 MG/ML 1ML VIAL IV ONE (21:15)
[2020-12-11] MEDS ORDERED: MOM 30ML SUSPENSION UDC PO PRN (22:10)
[2020-12-11] MEDS ORDERED: MAALOX 30 ML SUSP *UDC PO PRN (22:10)
[2020-12-11 22:12] LABS: RSV AMPLIFICATION NEGATIVE (NEGATIVE)
[2020-12-11] MEDS ORDERED: GLUCAGON INJ 1MG VIAL SC PRN (22:20)
[2020-12-11] MEDS ORDERED: DICYCLOMINE 10 MG CAP PO PRN (22:20)
[2020-12-11] MEDS ORDERED: GLUCOSE 4GM CHEW TABLET PO PRN (22:20)
[2020-12-11] MEDS ORDERED: DEXTROSE 50% 50 ML SYRINGE IV PRN (22:20)
[2020-12-11] MEDS ORDERED: ALBUTEROL 90 MCG/ACT 8GM HFA INHALER INH PRN (22:50)
[2020-12-11] MEDS: HumaLOG INSULIN (NovoLOG) PER UNIT SC SCH (22:53)
[2020-12-11] MEDS: NS 1,000 ML IV SCH (23:00)
--- NOTE | 2020-12-11 23:06 | HPEPDOC ---
[facility] Medical History & Physical Date of Admission Dec 11, 2020 Date of Service: Dec 11, 2020 History and Physical CHIEF COMPLAINT: Abdominal pain, nausea, vomiting HISTORY OF PRESENT ILLNESS: 50-year-old female with a past medical history of depressive disorder, type 2 diabetes, hypothyroidism, chronic back pain, knee p ain, fibromyalgia, left eye blindness, presented to the ER with a 2 day history of intractable nausea and vomiting and inability to tolerate PO. She is had a poor appetite and develops nausea every time she takes a drink of water. She is complaining of epigastric pain, but denies left-sided chest pain, jaw pain, left arm pain, palpitations, shortness of breath, fevers, or subjective chills. He was found to be hyperglycemic in the ER. States that she has run out of her glipize and metformin. Takes trulicity at home. She denies any blood in the stool, blood in the vomit. Patient was found to have leukocytosis 10.6. Hemoglobin of 16.8, hematocrit 49.6. Sodium 131, fasting glucose 322. Lactic ac id 2.41, which improved to 1.3 after 2 L normal saline bolus. She does not have an elevated anion gap. No VBG available on admission. Serum ketones are within normal limits. Urinalysis shows glucosuria, 2+. Patient also denies any fevers, chills, dysuria, cough, diarrhea. CT of abdomen and pelvis showed hepatic steatosis with enlargement of the left hepatic lobes of the liver suggestive of cirrhosis. Mild to moderate splenomegaly as well as multiple pericardiac lymph nodes up to 8 mm. No evidence for bowel obstruction. Patient will be admitted to hospitalist service for management of intractable nausea and vomiting as well as hyperglycemia without diabetic ketoacidosis or HHS. PAST MEDICAL HISTORY: DM2, insulin dependent Asthma Chronic back and knee pain Fibromyalgia Depressive disorder L eye blindness PAST SURGICAL HISTORY: 1. Dilation and curettage. 2. section. 3. Multiple eye surgeries bilaterally. 4. Skin graft. 5. Right knee surgery. SOCIAL HISTORY: Active smoker, approximately 1 pack per day Seldom alcohol use Patient denies illicit drug use FAMILY HISTORY: Patient's brother age 60 secondary to COPD Father secondary to mesothelioma age 65 ALLERGIES: Please see below. REVIEW OF SYSTEMS: 10 point review of systems was conducted, relevant findings were noted in the HPI. HOME MEDICATIONS: Please see below. PHYSICAL EXAMINATION: VITAL SIGNS: please see below General: NAD, comfortable, obese female HEENT: PERRLA, EOMI, sclerae clear Neck: supple, normal ROM, no JVD Respiratory: lungs CTAB, no wheeze, no rales, no crackles CVS: RRR, normal S1, S2, no murmurs Abdo: Obese abdomen mild tenderness to palpation in the epigastrium, soft, no masses, no hepatosplenomegaly, BS+, no rebound tenderness Extremities: no edema, pulses 2+ MSK: no joint deformities, normal ROM Neuro: no focal neuro deficits, moving all 4 extremities, CN2-12 intact. Strength 5/5 in all 4 extremities. No nystagmus. Psych: calm, cooperative, AAO x 3 LABORATORY DATA: See below. IMAGING: CT abdomen pelvis with IV contrast (12/11/20): 1. There is a diffuse decrease in hepatic parenchymal density, consistent with steatosis. 2. Also noted is enlargement of the left and caudate lobes of the liver as well as a lobular surface contour of the liver. Findings may indicate the presence of cirrhosis in this patient with no reported history of chronic liver disease. No focal abnormality demonstrated. 3. [id number] splenomegaly. 4. Multiple pericardiac lymph nodes measure up to 8 mm. 5. A small hiatal hernia is present. 6. Moderate diverticulosis is present in the distal colon. No diverticulitis. MICROBIOLOGY: Please see below. ASSESSMENT: 50-year-old female with a past medical history of depressive disorder, type 2 diabetes, hypothyroidism, chronic back pain, knee pain, fibromyalgia, left eye blindness, presented to the ER with a 2 day history of intractable nausea and vomiting and inability to tolerate PO. Patient found to be hyperglycemic 345 with elevated serum lactate 2.41. Administration of 2 L of normal saline bolus lactated resolved. CT abdomen and pelvis did not show evidence for bowel obstruction. Differential diagnosis for [place], nausea, vomiting includes diabetic gastroparesis versus gastritis/enteritis. . PLAN: Intractable nausea and vomiting possible 2/2 diabetic gastroparesis vs gastritis - CT shows no evidence of bowel obstruction - will give reglan and IVF - advance diet as tolerated, ordered CLD Elevated LA - resolved with IVF. Erythrocytosis - 2/2 dehydration, s/p 2L NS bolus - c/w IVF Hyperglycemia in setting of DM2 - BG improved after NS. ketones negative. No AG. Lactate normalized. - start on ISS AC and HS - hold glipizide and metformin. takes trulicity once per week - start levemir 10 units qhs - check a1c - patient ran out of meds Gastritis - epigastric discomfort, in setting of vomiting - initial trop < 0.02, repeat ordered. EKG showing NSR. - DC naproxen - start PPI Depression - resume fluoxetine, trazodone Chronic pain/fibromyalgia - resume flexeril, trazodone, fluoxetine Elevated TSH - check free T4. DVT ppx: SCDs. TEDs. Heparin. Dispo: pending clinical improvement Vital Signs Vital Signs Date Time Temp Pulse Resp B/P (MAP) Pulse Ox O2 Delivery O2 Flow Rate FiO2 12/11/20 21:31 92 17 164/94 (117) 93 Room Air 12/11/20 14:46 96.8 Laboratory Data Labs 24H Laboratory Tests 2 12/11/20 15:18: Urine Color YELLOW, Urine Appearance HAZY, Urine pH 7.0, Urine Specific [place] 1.055, Urine Protein NEGATIVE, Urine Glucose (UA) 2+H, Urine Ketones NEGATIVE, Urine Blood NEGATIVE, Urine Nitrite NEGATIVE, Urine Bilirubin NEGATIVE, Urine Urobilinogen 0.2, Urine Leukocyte Esterase NEGATIVE, Urine WBC (Auto) 1, Urine RBC (Auto) 1, Urine Hyaline Casts (Auto) 1, Urine Bacteria (Auto) NEGATIVE, Urine Squamous Epithelial Cells 5, Urine Mucus (Auto) SMALL, Urine Sperm (Auto) 12/11/20 15:24: Estimated Mean Plasma Glucose 240H, Hemoglobin A1c 10.0 12/11/20 15:25: Immature Granulocyte % (Auto) 0.5, Neutrophils (%) (Auto) 72.4H, Lymphocytes (%) (Auto) 21.5L, Monocytes (%) (Auto) 4.1, Eosinophils (%) (Auto) 0.9, Basophils (%) (Auto) 0.6, Neutrophils # (Auto) 7.7, Lymphocytes # (Auto) 2.3, Monocytes # (Auto) 0.4, Eosinophils # (Auto) 0.1, Basophils # (Auto) 0.1, Nucleated Red B lood Cells % (auto) 0.0 12/11/20 15:26: Anion Gap 10, Glomerular Filtration Rate > 60.0, Calcium Level 9.7, Total Bilirubin 0.7, Aspartate Amino Transf (AST/SGOT) 24, Alanine Aminotransferase (ALT/SGPT) 37, Alkaline Phosphatase 221H, Total Creatine Kinase 43, Creatine Kinase MB < 1.0, Creatine Kinase MB Relative Index 2.33, Troponin I < 0.02, Total Protein 8.1, Albumin 3.6, Albumin/Globulin Ratio 0.8L, Lipase 101, Thyroid Stimulating Hormone (TSH) 7.870H, B-Hydroxybutyrate 2.51 12/11/20 15:35: POC Glucose (Misc Panel) 345H, POC Sodium (Misc Panel) 134L, POC Potassium (Misc Panel) 4.3, POC Chloride (Misc Panel) 98, POC Total CO2 (Misc Panel) 20.0L, POC Blood Urea Nitrogen (Misc Panel 18, POC Ionized Calcium (Misc Panel) 4.4L, POC Creatinine (Misc Panel) 0.7, POC Hematocrit (Misc Panel) 50.0 12/11/20 15:39: POC Lactate (Misc Panel) 2.41*H 12/11/20 17:44: Bedside Glucose (Misc Panel) 270H 12/11/20 21:16: Lactic Acid Followup at 4 Hours 1.3, Coronavirus (COVID-19)(PCR) NEGATIVE, Influenza Type A (RT-PCR) NEGATIVE, Influenza Type B (RT-PCR) NEGATIVE, Respiratory Syncytial Virus (PCR) NEGATIVE CBC/BMP Laboratory Tests 12/11/20 15:25 12/11/20 15:26 Home Medications Scheduled Dulaglutide (Trulicity) 0.75 Mg/0.5 Ml Pen.injctr, 0.75 MG SC QWEEK Fluoxetine Hcl (Fluoxetine HCl) 20 Mg Capsule, 20 MG PO DAILY Glipizide (Glipizide ER) 10 Mg Tab.er.24, 10 MG PO DAILY Levothyroxine Sodium (Levothyroxine Sodium) 112 Mcg Tab, 112 MG PO DAILY Multivitamins (Thera M Plus Tablet) 1 Tab Tab, 1 TAB PO DAILY Scheduled PRN Albuterol Sulfate (Albuterol Sulfate Hfa) 8.5 Gm Hfa.aer.ad, 2 PUFFS INH Q4H PRN for SHORTNESS OF BREATH Cyclobenzaprine HCl (Cyclobenzaprine HCl) 10 Mg Tablet, 10 MG PO TID PRN for MUSCLE SPASMS Naproxen (Naproxen) 500 Mg Tablet, 500 MG PO BID PRN for pain Trazodone HCl (Trazodone HCl) 50 Mg Tablet, 50 MG PO QPM PRN for SLEEP Miscellaneous Medications [med rec comment] pt states she takes regualr insulin, however there is no documentation and she states she hasnt had any in weeks Allergies Coded Allergies: Anesthetics - Amide Type - Select A (Verified Allergy, Unknown, UNSURE WHICH TYPE, 12/11/20) bupropion (Verified Allergy, Unknown, 09/24/18) glimepiride (Verified Allergy, Unknown, 09/24/18) pregabalin (Verified Allergy, Unknown, 09/24/18) tetracycline (Verified Allergy, Unknown, 09/24/18) VU NIEVES MD Dec 11, 2020 23:06
[2020-12-11] MEDS: PANTOPRAZOLE 40MG VIAL (C9113 PER 1) IV SCH (23:42)
[2020-12-11] MEDS: METOCLOPRAMIDE INJ 10MG/2ML VIAL (J2765 PER 1) IV PRN (23:42)
[2020-12-11] MEDS: LEVEMIR (INSULIN DETEMIR) 1 UNITS/0.01ML SC SCH (23:44)
[2020-12-12] MEDS: LEVOTHYROXINE 112MCG TABLET (0.112MG) PO SCH (05:52)
[2020-12-12] MEDS: HEPARIN SOD (PORCINE) 5000UNITS/ML 1ML VIAL/SYRINGE SC SCH ×3 (05:53→20:07)
[2020-12-12 06:00] VITALS: BP 161/86
[2020-12-12 06:51] LABS: BASO % 0.5 % (0.0-1.0); EOS # 0.1 10^3/uL (0.0-0.5); EOS % 1.7 % (0.0-3.0); HEMATOCRIT 45.6 % (36.0-47.0); HEMOGLOBIN 14.9 g/dl (12.0-15.5); LYMPH # 2.1 10^3/uL (1.5-5.0); LYMPH % 25.4 % (24.0-44.0); MEAN CORPUSCULAR HEMOGLOBIN 30.8 pg (27.0-33.0); MEAN CORPUSCULAR HGB CONC 32.7 g/dl (32.0-36.5); MEAN CORPUSCULAR VOLUME 94.4 fl (80.0-96.0); MONO # 0.5 10^3/uL (0.0-0.8); MONO % 5.5 % (2.0-8.0); NEUTROPHILS # 5.5 10^3/uL (1.5-8.5); NEUTROPHILS % 66.4 % (36.0-66.0); PLATELET COUNT, AUTOMATED 305 10^3/uL (150-450); RED BLOOD COUNT 4.83 10^6/uL (4.00-5.40); WHITE BLOOD COUNT 8.3 10^3/uL (4.0-10.0)
[2020-12-12 07:03] LABS: HEMOGLOBIN A1c 9.9 %
[2020-12-12 07:10] LABS: ALBUMIN 3.1 GM/DL (3.2-5.2); ALT/SGPT 30 U/L (12-78); BILIRUBIN,TOTAL 0.6 MG/DL (0.2-1.0); BLOOD UREA NITROGEN 18 MG/DL (7-18); CALCIUM LEVEL 9.1 MG/DL (8.5-10.1); CARBON DIOXIDE LEVEL 25 MEQ/L (21-32); CHLORIDE LEVEL 104 MEQ/L (98-107); CREATININE FOR GFR 0.76 MG/DL (0.55-1.30); FREE T4 1.13 NG/DL (0.76-1.46); GLOMERULAR FILTRATION RATE > 60.0 (>51); GLUCOSE, FASTING 216 MG/DL (70-100); MAGNESIUM LEVEL 2.1 MG/DL (1.8-2.4); POTASSIUM SERUM 4.2 MEQ/L (3.5-5.1); SODIUM LEVEL 133 MEQ/L (136-145)
[2020-12-12] MEDS: ACETAMINOPHEN TAB 650MG DOSE (2X325MG) PO PRN ×2 (08:08→14:24)
[2020-12-12] MEDS: HumaLOG INSULIN (NovoLOG) PER UNIT SC SCH ×4 (08:08→19:42)
[2020-12-12] MEDS: METOCLOPRAMIDE INJ 10MG/2ML VIAL (J2765 PER 1) IV PRN ×3 (08:08→23:11)
[2020-12-12] MEDS: NS 1,000 ML IV SCH ×2 (08:09→23:11)
[2020-12-12] MEDS: DOCUSATE SODIUM 100MG CAPSULE PO SCH ×2 (08:12→19:46)
[2020-12-12] MEDS: FLUoxetine 20 MG CAP PO SCH (08:12)
[2020-12-12] MEDS: MULTIVITAMINS/MINERALS THERAP 1 TAB PO SCH (08:12)
--- NOTE | 2020-12-12 08:29 | REP ---
INDICATION: Abd pain COMPARISON: None. TECHNIQUE: Supine views of the abdomen and pelvis. FINDINGS: Bowel gas pattern is nonspecific and without obstruction or perforation. No organomegaly. No abnormal calcifications. Skeletal structures demonstrate degenerative changes primarily involving the thoracolumbar spine. IMPRESSION: Nonspecific bowel gas pattern. <Electronically signed by Wero Kathleen > 12/12/20 [id number]
[2020-12-12 09:12] LABS: FERRITIN 224 NG/ML (8-252)
--- NOTE | 2020-12-12 10:01 | IPN ---
PROGRESS NOTE DATE: 12/12/2020 CHIEF COMPLAINT: Nausea and abdominal pain. HISTORY: The patient was admitted with several days of intractable nausea and vomiting. No rectal bleeding, diarrhea, fever, or chills. She appears to have poorly controlled diabetes with hemoglobin A1c of 9.9%. She says that this is a new problem for her that she does not chronically have nausea. She does not have a metal solderer. She said that she has been diagnosed with ulcerative colitis within the last few years, but I have gone through five years of available EMR notes and I do not see an endoscopy performed or a biopsy that would substantiate this. She does have probable cirrhosis with nodular contour to her liver and associated splenomegaly. She is unaware of that diagnosis. PHYSICAL EXAMINATION: VITAL SIGNS: Afebrile. Vital signs stable with blood pressure 166/86, 94% O2 saturation. GENERAL APPEARANCE: She is lying in bed. She looks a little restless. HEENT: Unremarkable. LUNGS: Clear. HEART: Regular rhythm. ABDOMEN: Mildly distended, soft, and diffusely tender. No guarding and no rebound. EXTREMITIES: No clubbing, cyanosis, or edema. LABORATORY DATA: White count is down to 8.3, hemoglobin is 14.9, sodium is up to 133. BUN and creatinine are normal. Lipase yesterday was normal. IMPRESSION AND PLAN: 1. Intractable nausea. Suspect diabetic gastroparesis. I have ordered a nuclear medicine gastric emptying study. She has a history of chronic back pain. She is on medications which are liable to make gastroparesis worse including Flexeril and trazodone. She apparently needs these for her back problems. We will reduce her IV rate to 75 mL/hour and hopefully discontinue that tomorrow, if she can maintain sufficient oral intake with her clear liquid diet. 2. Diabetes with poor control as an outpatient. Currently on sliding scale insulin. We will get some diabetic teaching from the grain scooper while she is here. 3. Hypothyroidism. Continue current dose of levothyroxine. TSH is in the normal range. 4. Chronic back pain. She has Toradol ordered. She uses cyclobenzaprine and trazodone as an outpatient. 5. Cirrhosis probably from fatty liver. I have ordered a hepatitis panel and a ferritin for sake of completeness.
[2020-12-12 14:00] VITALS: BP 137/63
[2020-12-12] MEDS: ONDANSETRON 4MG/2ML VIAL IV PRN (20:07)
[2020-12-12] MEDS: PANTOPRAZOLE 40MG VIAL (C9113 PER 1) IV SCH (20:07)
[2020-12-12] MEDS: LEVEMIR (INSULIN DETEMIR) 1 UNITS/0.01ML SC SCH (20:08)
[2020-12-12 22:00] VITALS: BP 162/92
[2020-12-12] MEDS: traZODone 50 MG TAB PO PRN (23:11)
[2020-12-13 05:59] LABS: BASO % 0.6 % (0.0-1.0); EOS # 0.1 10^3/uL (0.0-0.5); EOS % 1.7 % (0.0-3.0); HEMATOCRIT 44.5 % (36.0-47.0); HEMOGLOBIN 14.6 g/dl (12.0-15.5); LYMPH # 1.9 10^3/uL (1.5-5.0); LYMPH % 25.8 % (24.0-44.0); MEAN CORPUSCULAR HEMOGLOBIN 30.9 pg (27.0-33.0); MEAN CORPUSCULAR HGB CONC 32.8 g/dl (32.0-36.5); MEAN CORPUSCULAR VOLUME 94.1 fl (80.0-96.0); MONO # 0.4 10^3/uL (0.0-0.8); MONO % 6.1 % (2.0-8.0); NEUTROPHILS # 4.8 10^3/uL (1.5-8.5); NEUTROPHILS % 65.5 % (36.0-66.0); PLATELET COUNT, AUTOMATED 254 10^3/uL (150-450); RED BLOOD COUNT 4.73 10^6/uL (4.00-5.40); WHITE BLOOD COUNT 7.3 10^3/uL (4.0-10.0)
[2020-12-13 06:00] VITALS: BP 149/72
[2020-12-13] MEDS: LEVOTHYROXINE 112MCG TABLET (0.112MG) PO SCH (06:04)
[2020-12-13] MEDS: HEPARIN SOD (PORCINE) 5000UNITS/ML 1ML VIAL/SYRINGE SC SCH ×3 (06:05→21:12)
[2020-12-13 06:26] LABS: ALBUMIN 3.2 GM/DL (3.2-5.2); ALT/SGPT 30 U/L (12-78); BILIRUBIN,TOTAL 0.6 MG/DL (0.2-1.0); BLOOD UREA NITROGEN 12 MG/DL (7-18); CALCIUM LEVEL 9.3 MG/DL (8.5-10.1); CARBON DIOXIDE LEVEL 25 MEQ/L (21-32); CHLORIDE LEVEL 104 MEQ/L (98-107); CREATININE FOR GFR 0.74 MG/DL (0.55-1.30); GLOMERULAR FILTRATION RATE > 60.0 (>51); GLUCOSE, FASTING 186 MG/DL (70-100); MAGNESIUM LEVEL 2.1 MG/DL (1.8-2.4); POTASSIUM SERUM 4.1 MEQ/L (3.5-5.1); SODIUM LEVEL 137 MEQ/L (136-145); TOTAL PROTEIN 6.9 GM/DL (6.4-8.2)
[2020-12-13] MEDS: HumaLOG INSULIN (NovoLOG) PER UNIT SC SCH ×4 (07:30→21:00)
[2020-12-13] MEDS: MULTIVITAMINS/MINERALS THERAP 1 TAB PO SCH (08:08)
[2020-12-13] MEDS: FLUoxetine 20 MG CAP PO SCH (08:08)
[2020-12-13] MEDS: DOCUSATE SODIUM 100MG CAPSULE PO SCH ×2 (08:08→21:12)
[2020-12-13] MEDS: ONDANSETRON 4MG/2ML VIAL IV PRN ×2 (08:08→13:09)
[2020-12-13] MEDS: NS 1,000 ML IV SCH (08:08)
[2020-12-13] MEDS: ACETAMINOPHEN TAB 650MG DOSE (2X325MG) PO PRN ×2 (08:11→21:12)
[2020-12-13] MEDS: CYCLOBENZAPRINE 10MG TABLET PO PRN ×2 (08:11→21:12)
[2020-12-13] MEDS: METOCLOPRAMIDE INJ 10MG/2ML VIAL (J2765 PER 1) IV PRN (08:55)
[2020-12-13 10:00] LABS: HEPATITIS B SURFACE ANTIBODY NEGATIVE (POSITIVE)
[2020-12-13 10:11] LABS: HEPATITIS B SURFACE ANTIGEN NEGATIVE (NEGATIVE)
[2020-12-13 10:39] LABS: HEPATITIS C VIRUS ABY INDEX < 0.0 INDEX (<0.8)
[2020-12-13 10:40] LABS: HEPATITIS B CORE ANTIBODY IGM NEGATIVE (NEGATIVE)
[2020-12-13 14:00] VITALS: BP 148/85
--- NOTE | 2020-12-13 15:52 | IPN ---
PROGRESS NOTE DATE: 12/11/2020 SUBJECTIVE: Elizabeth was admitted with intractable nausea and vomiting. Nursing staff uncovered what might be some excessive marijuana use. It could be contributing to cyclical vomiting syndrome. She also has uncontrolled diabetes, could have diabetic gastroparesis. She has a nuclear medicine gastric emptying study planned for today. She also was found to have cirrhosis which was suggested on previous scans and workup and some lab work for that are in process. OBJECTIVE: VITAL SIGNS: Blood pressure 149/72, pulse 69, respirations 19, 96% O2. GENERAL APPEARANCE: Alert, conversant, no distress. Lying flat on her stomach in bed. HEENT: Unremarkable. LUNGS: Clear. HEART: Regular rate and rhythm. ABDOMEN: Soft, nondistended, slight tender. No peripheral edema. LABS: Electrolytes are normal. Liver function tests are normal. White count 7.3, hemoglobin 14.6, platelets 254. Hepatitis B panel is negative. Hepatitis C panel is pending. IMPRESSION AND PLAN: 1. Intractable nausea and vomiting, etiology is unknown. It could be diabetic gastroparesis. It could be cyclical vomiting related to excess marijuana use. We discussed marijuana use at length today. She was also on some medications including Flexeril and trazodone that could make diabetic gastroparesis worse. 2. Diabetes. Poor control as an outpatient. Currently sliding scale Insulin with coverage with 10 units of Detemir Insulin a day. 3. Cirrhosis probably from fatty liver. Lab workup is pending. 4. Hypothyroidism. Continue current dose of levothyroxine. 5. Chronic back pain. She uses cyclobenzaprine and trazodone as an outpatient. If a gastric emptying study suggests gastroparesis, I would recommend these be discontinued on discharge. Probable discharge tomorrow depending on results of today's workup.
[2020-12-13] MEDS: PANTOPRAZOLE 40MG VIAL (C9113 PER 1) IV SCH (21:12)
[2020-12-13] MEDS: traZODone 50 MG TAB PO PRN (21:12)
[2020-12-13] MEDS: LEVEMIR (INSULIN DETEMIR) 1 UNITS/0.01ML SC SCH (21:13)
[2020-12-13 22:00] VITALS: BP 160/91
[2020-12-14] MEDS: NS 1,000 ML IV SCH ×2 (05:37→12:31)
[2020-12-14] MEDS: ACETAMINOPHEN TAB 650MG DOSE (2X325MG) PO PRN ×2 (05:38→21:58)
[2020-12-14] MEDS: LEVOTHYROXINE 112MCG TABLET (0.112MG) PO SCH (05:38)
[2020-12-14] MEDS: HEPARIN SOD (PORCINE) 5000UNITS/ML 1ML VIAL/SYRINGE SC SCH ×3 (05:38→21:59)
[2020-12-14 06:00] VITALS: BP 115/67
[2020-12-14 06:13] LABS: BASO % 0.6 % (0.0-1.0); EOS # 0.2 10^3/uL (0.0-0.5); EOS % 2.6 % (0.0-3.0); LYMPH # 2.2 10^3/uL (1.5-5.0); LYMPH % 31.7 % (24.0-44.0); MEAN CORPUSCULAR HEMOGLOBIN 31.5 pg (27.0-33.0); MEAN CORPUSCULAR HGB CONC 33.3 g/dl (32.0-36.5); MEAN CORPUSCULAR VOLUME 94.4 fl (80.0-96.0); MONO # 0.4 10^3/uL (0.0-0.8); MONO % 5.9 % (2.0-8.0); NEUTROPHILS % 58.8 % (36.0-66.0); PLATELET COUNT, AUTOMATED 236 10^3/uL (150-450); RED BLOOD COUNT 4.45 10^6/uL (4.00-5.40); WHITE BLOOD COUNT 6.8 10^3/uL (4.0-10.0)
[2020-12-14 06:33] LABS: ALT/SGPT 28 U/L (12-78); BILIRUBIN,TOTAL 0.4 MG/DL (0.2-1.0); BLOOD UREA NITROGEN 12 MG/DL (7-18); CALCIUM LEVEL 8.8 MG/DL (8.5-10.1); CARBON DIOXIDE LEVEL 28 MEQ/L (21-32); CHLORIDE LEVEL 105 MEQ/L (98-107); CREATININE FOR GFR 0.72 MG/DL (0.55-1.30); GLOMERULAR FILTRATION RATE > 60.0 (>51); GLUCOSE, FASTING 193 MG/DL (70-100); MAGNESIUM LEVEL 2.2 MG/DL (1.8-2.4); POTASSIUM SERUM 3.8 MEQ/L (3.5-5.1); SODIUM LEVEL 136 MEQ/L (136-145); TOTAL PROTEIN 6.6 GM/DL (6.4-8.2)
[2020-12-14] MEDS: DOCUSATE SODIUM 100MG CAPSULE PO SCH ×2 (08:02→21:58)
[2020-12-14] MEDS: FLUoxetine 20 MG CAP PO SCH (08:02)
[2020-12-14] MEDS: MULTIVITAMINS/MINERALS THERAP 1 TAB PO SCH (08:02)
[2020-12-14] MEDS: HumaLOG INSULIN (NovoLOG) PER UNIT SC SCH ×4 (08:03→21:00)
[2020-12-14 14:00] VITALS: BP 129/68
--- NOTE | 2020-12-14 15:22 | IPNPDOC ---
Subjective Date Seen The patient was seen on 12/14/20. Subjective Chief Complaint/HPI nausea, vomiting Objective Physical Examination General Exam: Positive: Alert, Cooperative, No Acute Distress Eye Exam: Positive: PERRLA ENT Exam: Positive: Atraumatic Neck Exam: Positive: Supple Chest Exam: Positive: Clear to auscultation Heart Exam: Positive: Rate Normal Abdomen Exam: Positive: Normal bowel sounds, Soft; Negative: Tenderness Extremity Exam: Negative: Edema Skin Exam: Negative: Rash Neuro Exam: Positive: Normal Speech Psych Exam: Positive: Mood NL Assessment /Plan Assessment 50 y/o F initially came to ER c/o nausea, vomiting, diffuse abdominal pain and inability to tolerate PO diet. Pt ran out of her home meds- glipizide and metformin; was found hyperglycemic in ER. CT of abdomen and pelvis showed hepatic steatosis with enlargement of the left hepatic lobes of the liver suggestive of cirrhosis. Mild to moderate splenomegaly as well as multiple pericardiac lymph nodes up to 8 mm. Pt was admitted under hospitalist service for intractable nausea/vomiting and hyperglycemia. Pt was seen and examined at bedside. Pt c/o mild nausea and mild diffuse abdominal pain. Plan 1. Nausea/vomiting improving could be related to marijuana abuse or diabetic gastroparesis ivf NS, iv zofran, NM gastric emptying test scheduled on 2. uncontrolled DM medication compliance was reinforced started on Levemir 10 units, insulin sliding scale, diabetic diet 3. Obesity supportive care 4. h/o depression home meds 5. hypothyroidism home meds 6. h/o chronic back pain home meds 7. h/o fibromyalgia home meds 8. abnormal CT finding ? Cirrhosis- o/p GI f/u multiple pericardiac LNs- o/p hematology referral as per PMD discretion. Plan/VTE VTE Prophylaxis Ordered?: Yes VS, I&O, 24H, Fishbone Vital Signs/I&O Vital Signs Date Time Temp Pulse Resp B/P (MAP) Pulse Ox O2 Delivery O2 Flow Rate FiO2 12/14/20 14:00 97.9 69 17 129/68 (88) 98 Room Air I&O- Last 24 Hours up to 6 AM 12/14/20 06:00 Intake Total 2095 ml Output Total 2200 ml Balance -105 ml Laboratory Data 24H LABS Laboratory Tests 2 12/13/20 16:33: Bedside Glucose (Misc Panel) 175H 12/13/20 19:45: Bedside Glucose (Misc Panel) 238H 12/14/20 05:26: Immature Granulocyte % (Auto) 0.4, Neutrophils (%) (Auto) 58.8, Lymphocytes (%) (Auto) 31.7, Monocytes (%) (Auto) 5.9, Eosinophils (%) (Auto) 2.6, Basophils (%) (Auto) 0.6, Neutrophils # (Auto) 4.0, Lymphocytes # (Auto) 2.2, Monocytes # (Auto) 0.4, Eosinophils # (Auto) 0.2, Basophils # (Auto) 0.0, Nucleated Red Blood Cells % (auto) 0.0, Anion Gap 3L, Glomerular Filtration Rate > 60.0, Calcium Level 8.8, Magnesium Level 2.2, Total Bilirubin 0.4, Aspartate Amino Transf (AST/SGOT) 20, Alanine Aminotransferase (ALT/SGPT) 28, Alkaline Phosphatase 156H, Total Protein 6.6, Albumin 3.0L, Albumin/Globulin Ratio 0.8L 12/14/20 11:31: Bedside Glucose (Misc Panel) 217H CBC/BMP Laboratory Tests 12/14/20 05:26 ALKA PARISH MD Dec 14, 2020 15:22
[2020-12-14] MEDS: PANTOPRAZOLE 40MG VIAL (C9113 PER 1) IV SCH (21:59)
[2020-12-14] MEDS: LEVEMIR (INSULIN DETEMIR) 1 UNITS/0.01ML SC SCH (21:59)
[2020-12-14 22:00] VITALS: BP 122/58
[2020-12-14] MEDS: traZODone 50 MG TAB PO PRN (23:18)
[2020-12-15] MEDS: NS 1,000 ML IV SCH (02:55)
[2020-12-15] MEDS: LEVOTHYROXINE 112MCG TABLET (0.112MG) PO SCH (05:55)
[2020-12-15] MEDS: HEPARIN SOD (PORCINE) 5000UNITS/ML 1ML VIAL/SYRINGE SC SCH ×3 (05:56→21:06)
[2020-12-15 06:00] VITALS: BP 144/88
[2020-12-15 06:14] LABS: BASO % 0.6 % (0.0-1.0); EOS # 0.2 10^3/uL (0.0-0.5); EOS % 2.7 % (0.0-3.0); HEMATOCRIT 41.8 % (36.0-47.0); HEMOGLOBIN 13.8 g/dl (12.0-15.5); LYMPH # 2.2 10^3/uL (1.5-5.0); LYMPH % 32.6 % (24.0-44.0); MEAN CORPUSCULAR HEMOGLOBIN 30.6 pg (27.0-33.0); MEAN CORPUSCULAR VOLUME 92.7 fl (80.0-96.0); MONO # 0.4 10^3/uL (0.0-0.8); MONO % 6.2 % (2.0-8.0); NEUTROPHILS # 3.8 10^3/uL (1.5-8.5); NEUTROPHILS % 57.4 % (36.0-66.0); PLATELET COUNT, AUTOMATED 236 10^3/uL (150-450); RED BLOOD COUNT 4.51 10^6/uL (4.00-5.40); WHITE BLOOD COUNT 6.6 10^3/uL (4.0-10.0)
[2020-12-15 06:38] LABS: ALBUMIN 2.9 GM/DL (3.2-5.2); ALT/SGPT 31 U/L (12-78); BILIRUBIN,TOTAL 0.5 MG/DL (0.2-1.0); BLOOD UREA NITROGEN 12 MG/DL (7-18); CALCIUM LEVEL 9.3 MG/DL (8.5-10.1); CARBON DIOXIDE LEVEL 27 MEQ/L (21-32); CHLORIDE LEVEL 105 MEQ/L (98-107); CREATININE FOR GFR 0.72 MG/DL (0.55-1.30); GLOMERULAR FILTRATION RATE > 60.0 (>51); GLUCOSE, FASTING 180 MG/DL (70-100); MAGNESIUM LEVEL 2.1 MG/DL (1.8-2.4); POTASSIUM SERUM 3.7 MEQ/L (3.5-5.1); SODIUM LEVEL 138 MEQ/L (136-145); TOTAL PROTEIN 6.8 GM/DL (6.4-8.2)
[2020-12-15] MEDS: HumaLOG INSULIN (NovoLOG) PER UNIT SC SCH ×4 (08:22→20:32)
[2020-12-15] MEDS: MULTIVITAMINS/MINERALS THERAP 1 TAB PO SCH (08:23)
[2020-12-15] MEDS: CYCLOBENZAPRINE 10MG TABLET PO PRN (08:23)
[2020-12-15] MEDS: FLUoxetine 20 MG CAP PO SCH (08:23)
[2020-12-15] MEDS: DOCUSATE SODIUM 100MG CAPSULE PO SCH ×2 (08:23→21:06)
[2020-12-15 14:00] VITALS: BP 130/71
--- NOTE | 2020-12-15 14:53 | IPNPDOC ---
Subjective Date Seen The patient was seen on 12/15/20. Subjective Chief Complaint/HPI nausea Objective Physical Examination General Exam: Positive: Alert, Cooperative, No Acute Distress Eye Exam: Positive: PERRLA ENT Exam: Positive: Atraumatic Neck Exam: Positive: Supple Chest Exam: Positive: Clear to auscultation Heart Exam: Positive: Rate Normal Abdomen Exam: Positive: Normal bowel sounds, Soft; Negative: Tenderness Extremity Exam: Negative: Edema Skin Exam: Negative: Rash Neuro Exam: Positive: Normal Speech Psych Exam: Positive: Mood NL Assessment /Plan Assessment 50 y/o F initially came to ER c/o nausea, vomiting, diffuse abdominal pain and inability to tolerate PO diet. Pt ran out of her home meds- glipizide and metformin; was found hyperglycemic in ER. CT of abdomen and pelvis showed hepatic steatosis with enlargement of the left hepatic lobes of the liver suggestive of cirrhosis. Mild to moderate splenom egaly as well as multiple pericardiac lymph nodes up to 8 mm. Pt was admitted under hospitalist service for intractable nausea/vomiting and hyperglycemia. No significant event over the night. c/o mild nausea and mild diffuse abdominal pain. no new complaint Plan 1. Nausea/vomiting improving could be related to marijuana abuse or diabetic gastroparesis iv zofran, NM gastric emptying test scheduled on 2. uncontrolled DM medication compliance was reinforced started on Levemir 10 units, insulin sliding scale, diabetic diet 3. h/o depression home meds 4. Obesity supportive care 5. hypothyroidism home meds 6. h/o chronic back pain home meds 7. h/o fibromyalgia home meds 8. abnormal CT finding ? Cirrhosis- o/p GI f/u multiple pericardiac LNs- o/p hematology referral as per PMD discretion. Plan/VTE VTE Prophylaxis Ordered?: Yes VS, I&O, 24H, Fishbone Vital Signs/I&O Vital Signs Date Time Temp Pulse Resp B/P (MAP) Pulse Ox O2 Delivery O2 Flow Rate FiO2 12/15/20 06:00 97.1 65 17 144/88 (106) 94 Room Air I&O- Last 24 Hours up to 6 AM 12/15/20 05:59 Intake Total 3555 ml Output Total 2825 ml Balance 730 ml Laboratory Data 24H LABS Laboratory Tests 2 12/14/20 16:41: Bedside Glucose (Misc Panel) 252H 12/14/20 21:07: Bedside Glucose (Misc Panel) 247H 12/15/20 05:30: Immature Granulocyte % (Auto) 0.5, Neutrophils (%) (Auto) 57.4, Lymphocytes (%) (Auto) 32.6, Monocytes (%) (Auto) 6.2, Eosinophils (%) (Auto) 2.7, Basophils (%) (Auto) 0.6, Neutrophils # (Auto) 3.8, Lymphocytes # (Auto) 2.2, Monocytes # (Auto) 0.4, Eosinophils # (Auto) 0.2, Basophils # (Auto) 0.0, Nucleated Red Blood Cells % (auto) 0.0, Anion Gap 6L, Glomerular Filtration Rate > 60.0, Calcium Level 9.3, Magnesium Level 2.1, Total Bilirubin 0.5, Aspartate Amino Transf (AST/SGOT) 17, Alanine Aminotransferase (ALT/SGPT) 31, Alkaline Phosphatase 161H, Total Protein 6.8, Albumin 2.9L, Albumin/Globulin Ratio 0.7L 12/15/20 11:23: Bedside Glucose (Misc Panel) 206H CBC/BMP Laboratory Tests 12/15/20 05:30 ALKA PARISH MD Dec 15, 2020 14:53
[2020-12-15] MEDS: LEVEMIR (INSULIN DETEMIR) 1 UNITS/0.01ML SC SCH (21:06)
[2020-12-15] MEDS: PANTOPRAZOLE 40MG VIAL (C9113 PER 1) IV SCH (21:06)
[2020-12-15 22:00] VITALS: BP 131/71
[2020-12-16] MEDS: CYCLOBENZAPRINE 10MG TABLET PO PRN (01:58)
[2020-12-16] MEDS: traZODone 50 MG TAB PO PRN (01:59)
[2020-12-16] MEDS: ACETAMINOPHEN TAB 650MG DOSE (2X325MG) PO PRN (01:59)
[2020-12-16] MEDS: HEPARIN SOD (PORCINE) 5000UNITS/ML 1ML VIAL/SYRINGE SC SCH (05:20)
[2020-12-16] MEDS: LEVOTHYROXINE 112MCG TABLET (0.112MG) PO SCH (05:20)
[2020-12-16 06:00] VITALS: BP 130/84
[2020-12-16 06:03] LABS: BASO # 0.1 10^3/uL (0.0-0.2); BASO % 0.7 % (0.0-1.0); EOS # 0.2 10^3/uL (0.0-0.5); EOS % 2.4 % (0.0-3.0); HEMATOCRIT 41.7 % (36.0-47.0); HEMOGLOBIN 13.9 g/dl (12.0-15.5); LYMPH # 2.7 10^3/uL (1.5-5.0); LYMPH % 35.9 % (24.0-44.0); MEAN CORPUSCULAR HEMOGLOBIN 31.4 pg (27.0-33.0); MEAN CORPUSCULAR HGB CONC 33.3 g/dl (32.0-36.5); MEAN CORPUSCULAR VOLUME 94.3 fl (80.0-96.0); MONO # 0.4 10^3/uL (0.0-0.8); MONO % 4.8 % (2.0-8.0); NEUTROPHILS # 4.1 10^3/uL (1.5-8.5); NEUTROPHILS % 55.8 % (36.0-66.0); PLATELET COUNT, AUTOMATED 236 10^3/uL (150-450); RED BLOOD COUNT 4.42 10^6/uL (4.00-5.40); WHITE BLOOD COUNT 7.4 10^3/uL (4.0-10.0)
[2020-12-16 06:31] LABS: ALT/SGPT 32 U/L (12-78); BILIRUBIN,TOTAL 0.3 MG/DL (0.2-1.0); BLOOD UREA NITROGEN 12 MG/DL (7-18); CALCIUM LEVEL 9.1 MG/DL (8.5-10.1); CARBON DIOXIDE LEVEL 30 MEQ/L (21-32); CHLORIDE LEVEL 104 MEQ/L (98-107); CREATININE FOR GFR 0.75 MG/DL (0.55-1.30); GLOMERULAR FILTRATION RATE > 60.0 (>51); GLUCOSE, FASTING 139 MG/DL (70-100); MAGNESIUM LEVEL 2.1 MG/DL (1.8-2.4); POTASSIUM SERUM 3.7 MEQ/L (3.5-5.1); SODIUM LEVEL 138 MEQ/L (136-145); TOTAL PROTEIN 6.3 GM/DL (6.4-8.2)
== END 2020-12-16 08:08 | disposition left against medical advice (07) | DRG 74 ==
LOC: M ED 14:43 → INTOOBSV 14:44 → M ED INP 14:44 → ENRESERV 22:44 → M MSPAV 23:21 → OBSVTOIN 12-14 11:41
PROVIDERS: ADMIT Family Medicine; ATTEND Internal Medicine
DX: E11.43 Type 2 diabetes mellitus with diabetic autonomic (poly)neuropathy (principal); Z68.42 Body mass index [BMI] 45.0-49.9, adult; E11.65 Type 2 diabetes mellitus with hyperglycemia; R11.15 Cyclical vomiting syndrome unrelated to migraine; F32.9 Major depressive disorder, single episode, unspecified; E03.9 Hypothyroidism, unspecified; M79.7 Fibromyalgia; Z79.4 Long term (current) use of insulin; J45.909 Unspecified asthma, uncomplicated; F17.200 Nicotine dependence, unspecified, uncomplicated; Z79.899 Other long term (current) drug therapy; Z88.8 Allergy status to other drugs, medicaments and biological substances; K74.60 Unspecified cirrhosis of liver; E66.9 Obesity, unspecified

== ENCOUNTER 2021-01-14 16:15 | Emergency (ER) | payer OTHER, MEDICAID ==
[~2021-01-14] VITALS: Ht 170.2 cm; Wt 159.1 kg
[~2021-01-14 16:15] MED LIST changes: +GLIP10TA18 PO; +med rec comment
[2021-01-14 17:06] LABS: VENOUS BASE EXCESS 0.8 (-2.0-2.0); VENOUS HCO3 23.8 MEQ/L (23.0-27.0); VENOUS O2 SATURATION 89.4 % (60.0-80.0); VENOUS PARTIAL PRESSURE CO2 33.9 mmHg (38.0-50.0); VENOUS PARTIAL PRESSURE O2 51.1 mmHg (30.0-50.0); VENOUS PH 7.465 UNITS (7.330-7.430); VENOUS STANDARD HCO3 24.9 MEQ/L; VENOUS TOTAL CO2 24.9 MEQ/L (24.0-28.0)
[2021-01-14] MEDS ORDERED: ISOVUE-370 76% 100ML VIAL As Ordered ONE (17:10)
[2021-01-14 17:31] LABS: BASO % 0.3 % (0.0-1.0); EOS # 0.1 10^3/uL (0.0-0.5); EOS % 0.9 % (0.0-3.0); HEMATOCRIT 42.5 % (36.0-47.0); HEMOGLOBIN 14.7 g/dl (12.0-15.5); LYMPH # 1.4 10^3/uL (1.5-5.0); LYMPH % 19.9 % (24.0-44.0); MEAN CORPUSCULAR HEMOGLOBIN 31.7 pg (27.0-33.0); MEAN CORPUSCULAR HGB CONC 34.6 g/dl (32.0-36.5); MEAN CORPUSCULAR VOLUME 91.8 fl (80.0-96.0); MONO # 0.4 10^3/uL (0.0-0.8); MONO % 5.2 % (2.0-8.0); NEUTROPHILS # 5.1 10^3/uL (1.5-8.5); NEUTROPHILS % 73.3 % (36.0-66.0); PLATELET COUNT, AUTOMATED 234 10^3/uL (150-450); RED BLOOD COUNT 4.63 10^6/uL (4.00-5.40)
[2021-01-14 17:35] LABS: OSMOLALITY SERUM 300 MOSM/KG (275-295)
[2021-01-14 17:50] LABS: ALBUMIN 3.2 GM/DL (3.2-5.2); ALT/SGPT 38 U/L (12-78); BILIRUBIN,DIRECT < 0.1 MG/DL (0.0-0.2); BILIRUBIN,TOTAL 0.4 MG/DL (0.2-1.0); CPK CREATINE PHOSPHOKINASE 80 U/L (26-192); MB/CK RELATIVE INDEX 1.25 (< OR =4); TOTAL PROTEIN 6.9 GM/DL (6.4-8.2); TROPONIN I < 0.02 NG/ML (< 0.10)
[2021-01-14] MEDS ORDERED: GI COCKTAIL 50ML BTL(HYOSCYAMINE/MAALOX/LIDOCAINE VISCOUS)(1:3:1) PO ONE (19:55)
[2021-01-14] MEDS ORDERED: ONDANSETRON 4MG/2ML VIAL IV ONE (19:55)
[2021-01-14] MEDS ORDERED: NS 1,000 ML IV ONE (19:55)
[2021-01-14] MEDS ORDERED: GLIP10TA18 PO (22:14)
[2021-01-14] MEDS ORDERED: TRUL10IN SC (22:14)
[2021-01-14] MEDS ORDERED: ONDA4TAB6 PO (22:14)
[2021-01-14 22:16] VITALS: BP 171/105
== END 2021-01-14 22:20 | disposition home or self-care (01) ==
LOC: M ED 16:15
DX: E11.65 Type 2 diabetes mellitus with hyperglycemia (principal); K76.0 Fatty (change of) liver, not elsewhere classified; I10 Essential (primary) hypertension; E78.5 Hyperlipidemia, unspecified; J44.9 Chronic obstructive pulmonary disease, unspecified; F43.10 Post-traumatic stress disorder, unspecified; Z79.4 Long term (current) use of insulin; Z79.899 Other long term (current) drug therapy; Z88.8 Allergy status to other drugs, medicaments and biological substances
CPT/HCPCS: 70450; 71045; 74177; 80047; 80076; 82140; 82550; 82553; 82803; 83605; 83930; 84443; 84484; 85025; 93005; 93041; 96361; 96374; 99285; J2405; Q9967

== ENCOUNTER 2021-01-27 14:58 | Emergency (ER) | payer OTHER, MEDICAID ==
[~2021-01-27] VITALS: Ht 170.2 cm; Wt 167.3 kg
[2021-01-27 15:07] VITALS: BP 131/61
== END 2021-01-27 15:35 | disposition left against medical advice (07) ==
LOC: M ED 14:58 → EDBD 14:58 → M ED 15:35
DX: Z53.21 Procedure and treatment not carried out due to patient leaving prior to being seen by health care provider (principal)

== ENCOUNTER 2022-04-07 14:10 | Emergency (ER) | payer OTHER, MEDICAID ==
[~2022-04-07] VITALS: Ht 170.2 cm; Wt 113.2 kg
[2022-04-07 16:31] LABS: BASO % 0.5 % (0.0-1.0); EOS # 0.1 10^3/uL (0.0-0.5); EOS % 1.1 % (0.0-3.0); HEMATOCRIT 44.7 % (36.0-47.0); HEMOGLOBIN 15.4 g/dl (12.0-15.5); LYMPH # 1.6 10^3/uL (1.5-5.0); LYMPH % 24.6 % (24.0-44.0); MEAN CORPUSCULAR HGB CONC 34.5 g/dl (32.0-36.5); MEAN CORPUSCULAR VOLUME 92.9 fl (80.0-96.0); MONO # 0.4 10^3/uL (0.0-0.8); MONO % 5.8 % (2.0-8.0); NEUTROPHILS # 4.3 10^3/uL (1.5-8.5); NEUTROPHILS % 67.4 % (36.0-66.0); PLATELET COUNT, AUTOMATED 216 10^3/uL (150-450); RED BLOOD COUNT 4.81 10^6/uL (4.00-5.40); WHITE BLOOD COUNT 6.4 10^3/uL (4.0-10.0)
[2022-04-07 17:08] LABS: ALBUMIN 3.1 GM/DL (3.2-5.2); ALT/SGPT 180 U/L (12-78); BILIRUBIN,DIRECT 0.3 MG/DL (0.0-0.2); BILIRUBIN,TOTAL 0.6 MG/DL (0.2-1.0); BLOOD UREA NITROGEN 11 MG/DL (7-18); CALCIUM LEVEL 9.2 MG/DL (8.5-10.1); CARBON DIOXIDE LEVEL 25 MEQ/L (21-32); CHLORIDE LEVEL 102 MEQ/L (98-107); GLOMERULAR FILTRATION RATE > 60.0 (>51); GLUCOSE, FASTING 251 MG/DL (70-100); LIPASE 173 U/L (73-393); POTASSIUM SERUM 4.1 MEQ/L (3.5-5.1); SODIUM LEVEL 134 MEQ/L (136-145); TOTAL PROTEIN 7.7 GM/DL (6.4-8.2)
[2022-04-07] MEDS ORDERED: ONDANSETRON 4MG 2ML VIAL IV ONE (18:05)
[2022-04-07] MEDS ORDERED: KETOROLAC 30 MG/ML 1ML VIAL IV ONE (18:05)
[2022-04-07] MEDS ORDERED: NS 1,000 ML IV ONE (18:05)
[2022-04-07 18:10] VITALS: BP 137/78
[2022-04-07] MEDS ORDERED: METOCLOPRAMIDE INJ 10MG/2ML VIAL (J2765 PER 1) IV ONE (20:20)
[2022-04-07] MEDS ORDERED: MORPHINE 4 MG/ML 1ML VIAL/SYRINGE IV ONE (20:50)
[2022-04-07] MEDS ORDERED: REGL10TA6 PO (20:58)
[2022-04-07 21:03] LABS: HEPATITIS B SURFACE ANTIGEN NEGATIVE (NEGATIVE)
[2022-04-07 21:32] LABS: HEPATITIS B CORE ANTIBODY IGM NEGATIVE (NEGATIVE)
[2022-04-07 21:42] LABS: HEPATITIS C VIRUS ABY INDEX > 11.0 INDEX (<0.8)
== END 2022-04-08 00:18 | disposition home or self-care (01) ==
LOC: M ED 14:10 → EDBD 14:10 → M ED 04-08 00:18
DX: K74.60 Unspecified cirrhosis of liver (principal); B17.10 Acute hepatitis C without hepatic coma; F17.200 Nicotine dependence, unspecified, uncomplicated; F41.9 Anxiety disorder, unspecified; F32.A Depression, unspecified; Z88.1 Allergy status to other antibiotic agents; Z88.6 Allergy status to analgesic agent; Z88.4 Allergy status to anesthetic agent; Z79.51 Long term (current) use of inhaled steroids; Z79.84 Long term (current) use of oral hypoglycemic drugs; Z79.899 Other long term (current) drug therapy
CPT/HCPCS: 74176; 80048; 80076; 81000; 81015; 83690; 85025; 86705; 86709; 86803; 87086; 87340; 87522; 96361; 96374; 96375; 99284; J1885; J2270; J2405; J2765

== ENCOUNTER 2022-05-12 19:20 | Emergency (ER) | payer OTHER, MEDICAID ==
[~2022-05-12] VITALS: Ht 170.2 cm; Wt 113.0 kg
[2022-05-12 21:28] LABS: BASO % 0.3 % (0.0-1.0); EOS % 0.6 % (0.0-3.0); HEMATOCRIT 42.2 % (36.0-47.0); HEMOGLOBIN 14.6 g/dl (12.0-15.5); LYMPH # 1.3 10^3/uL (1.5-5.0); LYMPH % 19.6 % (24.0-44.0); MEAN CORPUSCULAR HEMOGLOBIN 32.2 pg (27.0-33.0); MEAN CORPUSCULAR HGB CONC 34.6 g/dl (32.0-36.5); MEAN CORPUSCULAR VOLUME 93.2 fl (80.0-96.0); MONO # 0.3 10^3/uL (0.0-0.8); MONO % 4.3 % (2.0-8.0); NEUTROPHILS # 5.1 10^3/uL (1.5-8.5); NEUTROPHILS % 74.8 % (36.0-66.0); PLATELET COUNT, AUTOMATED 206 10^3/uL (150-450); RED BLOOD COUNT 4.53 10^6/uL (4.00-5.40); WHITE BLOOD COUNT 6.8 10^3/uL (4.0-10.0)
[2022-05-12 21:31] LABS: VENOUS BASE EXCESS 1.1 (-2.0-2.0); VENOUS O2 SATURATION 87.9 % (60.0-80.0); VENOUS PARTIAL PRESSURE CO2 37.7 mmHg (38.0-50.0); VENOUS PARTIAL PRESSURE O2 53.5 mmHg (30.0-50.0); VENOUS STANDARD HCO3 25.2 MEQ/L; VENOUS TOTAL CO2 26.2 MEQ/L (24.0-28.0)
[2022-05-12 21:56] LABS: ALBUMIN 2.8 G/DL (3.2-5.2); ALT/SGPT 111 U/L (7.0-40); BILIRUBIN,TOTAL 0.6 MG/DL (0.3-1.2); BLOOD UREA NITROGEN 15 MG/DL (9-23); CALCIUM LEVEL 8.8 MG/DL (8.5-10.1); CARBON DIOXIDE LEVEL 25 MMOL/L (20-31); CHLORIDE LEVEL 98 MMOL/L (98-107); CK-MB VALUE MASS < 1.0 NG/ML (<3.6); CPK CREATINE PHOSPHOKINASE 18 U/L (34-145); CREATININE FOR GFR 0.47 MG/DL (0.55-1.30); GLOMERULAR FILTRATION RATE > 60.0 (>51); GLUCOSE, FASTING 261 MG/DL (60-100); MAGNESIUM LEVEL 1.6 MG/DL (1.8-2.4); MB/CK RELATIVE INDEX 5.55 (< OR =4); POTASSIUM SERUM 4.2 MMOL/L (3.5-5.1); SODIUM LEVEL 132 MMOL/L (136-145); THYROID STIMULATING HORMONE 4.086 uIU/ML (0.55-4.78); TOTAL PROTEIN 7.2 G/DL (5.7-8.2)
[2022-05-12 21:57] LABS: ACETONE/KETONE 1.96 MG/DL (<2.81)
[2022-05-12] MEDS ORDERED: hydrALAZINE 20MG/ML 1ML VIAL (J0360 PER 20MG) IV ONE (23:45)
[2022-05-12] MEDS ORDERED: ONDANSETRON 4MG 2ML VIAL IV ONE (23:45)
[2022-05-12] MEDS ORDERED: KETOROLAC 30 MG/ML 1ML VIAL IV ONE (23:45)
[2022-05-12 23:50] VITALS: BP 183/106
[2022-05-13] MEDS ORDERED: FOSFOMYCIN TROMETHAMINE 3 GM POWDER PACKET (MONUROL) PO ONE (01:40)
[2022-05-13] MEDS ORDERED: METOCLOPRAMIDE INJ 10MG/2ML VIAL (J2765 PER 1) IV ONE (01:40)
[2022-05-13] MEDS ORDERED: REGL10TA6 PO (01:44)
[2022-05-13] MEDS ORDERED: METF-838 PO (01:44)
[2022-05-13] MEDS ORDERED: AMLO25TA PO (01:44)
[2022-05-13 01:58] LABS: CK-MB VALUE MASS < 1.0 NG/ML (<3.6); CPK CREATINE PHOSPHOKINASE 20 U/L (34-145)
[2022-05-13] MEDS ORDERED: FAMOTIDINE 20 MG TAB PO ONE (02:15)
[2022-05-13 03:00] VITALS: BP 135/78
== END 2022-05-13 03:40 | disposition home or self-care (01) ==
LOC: M ED 19:20
DX: E11.65 Type 2 diabetes mellitus with hyperglycemia (principal); N39.0 Urinary tract infection, site not specified; I10 Essential (primary) hypertension; I44.4 Left anterior fascicular block; I45.10 Unspecified right bundle-branch block; E03.9 Hypothyroidism, unspecified; F32.A Depression, unspecified; Z88.1 Allergy status to other antibiotic agents; Z88.8 Allergy status to other drugs, medicaments and biological substances; Z79.84 Long term (current) use of oral hypoglycemic drugs; Z79.51 Long term (current) use of inhaled steroids; Z79.899 Other long term (current) drug therapy
CPT/HCPCS: 71045; 74018; 80053; 81000; 81015; 82010; 82550; 82553; 82803; 83605; 83735; 83880; 84443; 84484; 85025; 87088; 87186; 87486; 87581; 87633; 87798; 93005; 96374; 96375; 99285; J0360; J1885; J2405; J2765

== ENCOUNTER 2022-05-14 07:14 | Emergency (ER) | payer OTHER, MEDICAID ==
[~2022-05-14 07:14] MED LIST changes: +AMLO25TA PO; +METF-838 PO
[2022-05-14 07:40] LABS: BASO % 0.4 % (0.0-1.0); EOS # 0.1 10^3/uL (0.0-0.5); EOS % 0.7 % (0.0-3.0); HEMATOCRIT 41.7 % (36.0-47.0); HEMOGLOBIN 14.5 g/dl (12.0-15.5); LYMPH # 1.8 10^3/uL (1.5-5.0); LYMPH % 25.6 % (24.0-44.0); MEAN CORPUSCULAR HEMOGLOBIN 31.9 pg (27.0-33.0); MEAN CORPUSCULAR HGB CONC 34.8 g/dl (32.0-36.5); MEAN CORPUSCULAR VOLUME 91.9 fl (80.0-96.0); MONO # 0.4 10^3/uL (0.0-0.8); MONO % 5.8 % (2.0-8.0); NEUTROPHILS # 4.6 10^3/uL (1.5-8.5); NEUTROPHILS % 67.1 % (36.0-66.0); PLATELET COUNT, AUTOMATED 240 10^3/uL (150-450); RED BLOOD COUNT 4.54 10^6/uL (4.00-5.40); WHITE BLOOD COUNT 6.9 10^3/uL (4.0-10.0)
[2022-05-14] MEDS ORDERED: NS 1,000 ML IV SCH (08:05)
[2022-05-14] MEDS ORDERED: METOCLOPRAMIDE INJ 10MG/2ML VIAL (J2765 PER 1) IV ONE (08:05)
[2022-05-14 08:15] LABS: ALBUMIN 3.4 G/DL (3.2-5.2); ALT/SGPT 107 U/L (7.0-40); BILIRUBIN,DIRECT 0.2 MG/DL (<0.4); BILIRUBIN,TOTAL 0.6 MG/DL (0.3-1.2); BLOOD UREA NITROGEN 15 MG/DL (9-23); CALCIUM LEVEL 9.3 MG/DL (8.5-10.1); CARBON DIOXIDE LEVEL 21 MMOL/L (20-31); CHLORIDE LEVEL 99 MMOL/L (98-107); CK-MB VALUE MASS 1.3 NG/ML (<3.6); CPK CREATINE PHOSPHOKINASE 42 U/L (34-145); CREATININE FOR GFR 0.52 MG/DL (0.55-1.30); FREE T4 1.16 NG/DL (0.89-1.76); GLOMERULAR FILTRATION RATE > 60.0 (>51); GLUCOSE, FASTING 313 MG/DL (60-100); LIPASE 42 U/L (12-53); MB/CK RELATIVE INDEX 3.09 (< OR =4); POTASSIUM SERUM 4.2 MMOL/L (3.5-5.1); SODIUM LEVEL 132 MMOL/L (136-145); THYROID STIMULATING HORMONE 5.098 uIU/ML (0.55-4.78); TOTAL PROTEIN 7.8 G/DL (5.7-8.2)
[2022-05-14] MEDS ORDERED: ISOVUE-370 76% 100ML VIAL As Ordered ONE (09:02)
[2022-05-14 09:37] LABS: CK-MB VALUE MASS < 1.0 NG/ML (<3.6); CPK CREATINE PHOSPHOKINASE 30 U/L (34-145); MB/CK RELATIVE INDEX 3.33 (< OR =4)
[2022-05-14] MEDS ORDERED: SUCRALFATE SUSP 1GM/10ML UD PO ONE (09:55)
[2022-05-14] MEDS ORDERED: HumuLIN R (REGULAR) INSULIN (NovoLIN R) **100U/ML** PER UNIT SC STA (10:57)
[2022-05-14] MEDS ORDERED: PROMETHAZINE 25MG/ML 1ML VIAL IV ONE (11:05)
[2022-05-14] MEDS ORDERED: PANTOPRAZOLE 40MG VIAL IV ONE (11:05)
[2022-05-14] MEDS ORDERED: ONDANSETRON 4MG 2ML VIAL IV ONE (12:20)
[2022-05-14] MEDS ORDERED: ACETAMINOPHEN 500 MG TAB PO ONE (12:20)
[2022-05-14 14:13] VITALS: BP 161/82
== END 2022-05-14 14:24 | disposition home or self-care (01) ==
LOC: EDBD 07:14 → M ED 07:14 → EDSEX 07:14 → M ED 14:24
DX: R11.2 Nausea with vomiting, unspecified (principal); E11.65 Type 2 diabetes mellitus with hyperglycemia; I44.4 Left anterior fascicular block; I45.10 Unspecified right bundle-branch block; J45.909 Unspecified asthma, uncomplicated; F17.200 Nicotine dependence, unspecified, uncomplicated; Z79.4 Long term (current) use of insulin; Z88.1 Allergy status to other antibiotic agents; Z88.4 Allergy status to anesthetic agent; Z88.6 Allergy status to analgesic agent; Z79.51 Long term (current) use of inhaled steroids; Z79.899 Other long term (current) drug therapy
CPT/HCPCS: 71045; 74177; 80048; 80076; 82550; 82553; 83690; 84439; 84443; 84484; 85025; 93005; 93041; 94760; 96365; 96374; 96375; 99285; C9113; J1815; J2405; J2550; J2765; Q9967

== ENCOUNTER 2022-05-26 22:42 | Emergency (ER) | payer OTHER, MEDICAID ==
[~2022-05-26] VITALS: Ht 170.2 cm; Wt 155.0 kg
[2022-05-27] MEDS ORDERED: ACETAMINOPHEN 325 MG TAB PO ONE (02:00)
[2022-05-27] MEDS ORDERED: BENZONATATE 100MG CAPSULE PO ONE (02:00)
[2022-05-27 03:05] LABS: HEMOGLOBIN 12.6 g/dl (12.0-15.5); MEAN CORPUSCULAR HEMOGLOBIN 31.9 pg (27.0-33.0); MEAN CORPUSCULAR HGB CONC 33.2 g/dl (32.0-36.5); MEAN CORPUSCULAR VOLUME 96.2 fl (80.0-96.0); PLATELET COUNT, AUTOMATED 169 10^3/uL (150-450); RED BLOOD COUNT 3.95 10^6/uL (4.00-5.40); WHITE BLOOD COUNT 4.5 10^3/uL (4.0-10.0)
[2022-05-27 03:30] LABS: ATYPICAL LYMPH 7 % (0-5); EOSINOPHILS 2 % (0-3); LYMPHOCYTES 38 % (16-44); MONOCYTES 5 % (0-5); NEUTROPHILS 48 % (28-66)
[2022-05-27 03:31] LABS: PLATELET ESTIMATE NORMAL (NORMAL); SMUDGE CELLS 1+
[2022-05-27 03:36] LABS: RSV AMPLIFICATION NEGATIVE (NEGATIVE)
[2022-05-27 03:44] VITALS: BP 116/57
[2022-05-27] MEDS ORDERED: LIDO5DIS41 TD (04:08)
[2022-05-27] MEDS ORDERED: OSEL75CA PO (04:08)
[2022-05-27] MEDS ORDERED: CYCL-707 PO (04:08)
[2022-05-27] MEDS ORDERED: OSELTAMIVIR PHOSPHATE 75 MG CAP (TAMIFLU) PO ONE (04:10)
[2022-05-27] MEDS ORDERED: LIDOCAINE 5% (LIDODERM) PATCH TD ONE (04:15)
== END 2022-05-27 04:10 | disposition home or self-care (01) ==
LOC: EDBD 22:42 → M ED 22:42
DX: J09.X2 Influenza due to identified novel influenza A virus with other respiratory manifestations (principal); M54.50 Low back pain, unspecified; W18.2XXA Fall in (into) shower or empty bathtub, initial encounter; F17.200 Nicotine dependence, unspecified, uncomplicated; J45.909 Unspecified asthma, uncomplicated; E11.9 Type 2 diabetes mellitus without complications; I10 Essential (primary) hypertension; Y92.009 Unspecified place in unspecified non-institutional (private) residence as the place of occurrence of the external cause; Y93.E1 Activity, personal bathing and showering; Z88.8 Allergy status to other drugs, medicaments and biological substances; Z79.51 Long term (current) use of inhaled steroids; Z79.4 Long term (current) use of insulin; Z79.899 Other long term (current) drug therapy

== ENCOUNTER → 2022-06-23 | Outpatient (REF) | payer OTHER, MEDICAID ==
[~2022-06-23] MED LIST changes: +LIDO5DIS41 TD; +OSEL75CA PO
[2022-06-23 17:07] LABS: BASO # 0.1 10^3/uL (0.0-0.2); BASO % 0.6 % (0.0-1.0); EOS # 0.1 10^3/uL (0.0-0.5); EOS % 0.6 % (0.0-3.0); HEMATOCRIT 50.3 % (36.0-47.0); HEMOGLOBIN 16.4 g/dl (12.0-15.5); LYMPH # 2.5 10^3/uL (1.5-5.0); LYMPH % 31.9 % (24.0-44.0); MEAN CORPUSCULAR HEMOGLOBIN 31.9 pg (27.0-33.0); MEAN CORPUSCULAR HGB CONC 32.6 g/dl (32.0-36.5); MEAN CORPUSCULAR VOLUME 97.9 fl (80.0-96.0); MONO # 0.5 10^3/uL (0.0-0.8); MONO % 6.2 % (2.0-8.0); NEUTROPHILS # 4.8 10^3/uL (1.5-8.5); NEUTROPHILS % 60.4 % (36.0-66.0); PLATELET COUNT, AUTOMATED 350 10^3/uL (150-450); RED BLOOD COUNT 5.14 10^6/uL (4.00-5.40)
[2022-06-23 17:22] LABS: HEMOGLOBIN A1c 10.1 % (4.0-6.0)
[2022-06-23 17:30] LABS: ALBUMIN 3.6 G/DL (3.2-5.2); ALKALINE PHOSPHATASE 295 U/L (46-116); ALT/SGPT 264 U/L (7.0-40); AST/SGOT 214 U/L (<34); BILIRUBIN,TOTAL 0.8 MG/DL (0.3-1.2); BLOOD UREA NITROGEN 23 MG/DL (9-23); CALCIUM LEVEL 10.1 MG/DL (8.5-10.1); CARBON DIOXIDE LEVEL 24 MMOL/L (20-31); CHLORIDE LEVEL 97 MMOL/L (98-107); CHOLESTEROL LEVEL 201 MG/DL (<200); CHOLESTEROL RISK RATIO 7.12 (<5); CREATININE FOR GFR 0.97 MG/DL (0.55-1.30); GLOMERULAR FILTRATION RATE > 60.0 (>51); GLUCOSE, FASTING 253 MG/DL (60-100); HDL CHOLESTEROL 28.2 MG/DL (>40); LDL CHOLESTEROL 125.6 MG/DL (<100); NON-HDL-C 173 MG/DL; POTASSIUM SERUM 4.4 MMOL/L (3.5-5.1); SODIUM LEVEL 133 MMOL/L (136-145); TOTAL PROTEIN 8.2 G/DL (5.7-8.2); TRIGLYCERIDES LEVEL 236 MG/DL (<150)
[2022-06-23 17:34] LABS: THYROID STIMULATING HORMONE 9.508 uIU/ML (0.55-4.78)
[2022-06-23 17:35] LABS: FREE T4 1.07 NG/DL (0.89-1.76)
== END ==
LOC: M LAB REF 16:08
PROVIDERS: ATTEND Nurse Practitioner Family
DX: Z13.228 Encounter for screening for other metabolic disorders (principal); Z79.899 Other long term (current) drug therapy